=== PATIENT | male | born 1965 | race Caucasian/White ===

== ENCOUNTER 2017-04-21 09:20 | Emergency (ER) | payer BC, OTHER ==
[~2017-04-21] VITALS: Ht 172.7 cm; Wt 115.1 kg
[~2017-04-21 09:20] MED LIST: INFLIXIMAB IV.; PANT40TA PO; PNT500 PO; [UNRECOGNIZED DRUG - OTHER] IV.
[2017-04-21 09:34] VITALS: TEMP 37.1; Ht 172.7 cm; Wt 115.1 kg
[2017-04-21] MEDS ORDERED: ONDANSETRON INJ 2 MG/ML 2 ML VIAL IV STA (09:46)
[2017-04-21] MEDS ORDERED: SODIUM CHLORIDE 0.9% 1000ML 1,000 ML IV STA (09:46)
[2017-04-21] MEDS ORDERED: KETOROLAC TROMETHAMINE 30 MG/ML VIAL IV STA (09:46)
[2017-04-21] MEDS ORDERED: OPTIRAY 320 IV PRN (10:00)
--- NOTE | 2017-04-21 10:07 | EMERGENCY ROOM VISIT NOTE ---
History Report prepared by Kyara: Ran Baires Under the Supervision of: Dr. Kamran Friedman M.D. First contact with patient: 09:43 Chief Complaint: ABDOMINAL PAIN Stated Complaint: BLOATING PAIN IN STOMACH History of Present Illness The patient is a 51 year old male who presents to the Emergency Room with complaints of waxing and waning abdominal discomfort that he has been experiencing for the past 3 days. The patient describes his discomfort as "pressure" and "distention." He notes that the pain seems to be radiating down his abdomen towards his groin and sometimes "rolls" up and down his abdomen. At its most severe, the pain was an 8/10 last night and is currently a 4/10. He is also nauseous at this time and adds that he has not had a normal bowel movement in the past 3 days. The patient does have a history of Crohn's disease with a 24 inch resection of small bowel, and 4 inches of the colon. He did have a colonoscopy 9 days ago, which was routine and basically unremarkable except for a few ulcerations near his anastomosis. Source of History: patient Onset: 3 days Position: abdomen Symptom Intensity: 4/10 Quality: pressure, other (Distention) Timing: waxes/wanes Associated Symptoms: + nausea Note: constipation Review of Systems See HPI for pertinent positives & negatives. A total of 10 systems reviewed and were otherwise negative. Past Medical & Surgical Medical Problems: (1) Crohn disease Surgical Problems: (1) History of bowel resection Crohn disease Family History Cancer Diabetes mellitus FH: heart disease Hypertension Kidney disease Kidney stones Social History Smoking Status: Never Smoker Alcohol Use: none Marital Status: Current/Historical Medications Scheduled Allopurinol (Zyloprim), 300 MG PO DAILY Cholecalciferol (Vitamin D3), 4,000 UNITS PO DAILY Fenofibrate (Tricor ), 145 MG PO DAILY Liraglutide (Victoza), 1.8 ML SC DAILY Mesalamine (Pentasa), 1,000 MG PO BID Metformin Hcl Er (Glucophage Er), 500 MG PO DAILY Pantoprazole (Protonix), 20 MG PO DAILY Pravastatin (Pravachol ), 10 MG PO 2XWK Sennosides-Docusate Sodium (Senokot S), 2 TAB PO BID Allergies Coded Allergies: No Known Allergies (Verified , 10/12/03) Physical Exam Vital Signs Date Time Temp Pulse Resp B/P (MAP) Pulse Ox O2 Delivery O2 Flow Rate FiO2 04/21/17 12:49 73 18 113/79 98 04/21/17 11:15 82 18 123/72 95 Room Air 04/21/17 09:34 37.1 86 17 124/88 94 Room Air Physical Exam GENERAL: Patient is in no acute distress. HEENT: No acute trauma, normocephalic atraumatic, mucous membranes moist, no nasal congestion, no scleral icterus. NECK: No stridor, no adenopathy, no meningismus, trachea is midline. LUNGS: There are a few crackles at the right base, no wheeze, breath sounds equal. HEART: Without murmurs gallops or rubs, regular rate and rhythm. ABDOMEN: Soft, with mild diffuse tenderness, mostly tender in the bilateral lower quadrants. Bowel sounds positive, no hernias, no peritonitis. EXTREMITIES: No cyanosis or edema, full range of motion of all the joints without pain or difficulty, no signs for acute trauma. NEUROLOGIC: Oriented x 3, no acute motor or sensory deficits, no focal weakness. SKIN: No rash, no jaundice, no diaphoresis. Medical Decision & Procedures ER Provider Diagnostic Interpretation: Radiology results as stated below per my review and radiologist interpretation: CHEST ONE VIEW PORTABLE CLINICAL HISTORY: Abdominal bloating. Possible free air. COMPARISON STUDY: Chest radiograph September 12, 2007 and February 01, 2010. FINDINGS: There is no lucency under the hemidiaphragms to indicate free air on this pneumoperitoneum on this exam. There is stable [id number]-rk-opeolqry elevation of the right hemidiaphragm. There is no evidence for pulmonary edema. There is no consolidation. No pneumothorax or pleural effusion is noted. IMPRESSION: No acute cardiopulmonary findings. Electronically signed by: Tony Langford M.D. 04/21/2017 10:08 AM Dictated Date/Time: 04/21/2017 10:07 AM ABD/PELVIS IV AND ORAL CONT CT DOSE: 1643.08 mGy.cm HISTORY: Pain ABDOMINAL PAIN/GI--?abscess, perf--colonoscopy last week, pain TECHNIQUE: Multiaxial CT images of the abdomen and pelvis were performed following the use of intravenous and oral contrast. A dose lowering technique was utilized adhering to the principles of ALARA. COMPARISON STUDY: 01/31/2011 FINDINGS: Lung bases are clear. Liver spleen and pancreas are unremarkable. Fatty replacement of liver is noted. Kidneys enhance uniformly. No evidence for hydronephrosis. The adrenal glands are unremarkable. Considerable increase in fecal load throughout the colon consistent with fecal stasis. Operative changes consistent with an ileocecectomy. Several slightly distended loops of small bowel in the midline possibly secondary to the thecal stasis present versus a reactive ileus. No evidence for free air or pneumatosis. No evidence for abscess collection or obstruction. Bladder is midline. No significant free fluid within the pelvic cul-de-sac. IMPRESSION: 1. Considerable increase in fecal load throughout the colon consistent with fecal stasis. 2. Mild reactive small bowel ileus 3. No evidence for abscess collection or obstruction. 4. Fatty infiltration of liver. The above report was generated using voice recognition software. It may contain grammatical, syntax or spelling errors. Electronically signed by: Alphonso Constantino M.D. 04/21/2017 12:09 PM Dictated Date/Time: 04/21/2017 12:06 PM Laboratory Results 04/21/17 09:38 Red Blood Count 4.92, Mean Corpuscular Volume 88.2, Mean Corpuscular Hemoglobin 29.9, Mean Corpuscular Hemoglobin Concent 33.9, Mean Platelet Volume 10.5, Neutrophils (%) (Auto) 61.1, Lymphocytes (%) (Auto) 26.7, Monocytes (%) (Auto) 9.8, Eosinophils (%) (Auto) 1.8, Basophils (%) (Auto) 0.3, Neutrophils # (Auto) 6.05, Lymphocytes # (Auto) 2.64, Monocytes # (Auto) 0.97, Eosinophils # (Auto) 0.18, Basophils # (Auto) 0.03 04/21/17 09:38 Test 04/21/17 09:38 04/21/17 09:55 White Blood Count 9.90 K/uL (4.8-10.8) Red Blood Count 4.92 M/uL (4.7-6.1) Hemoglobin 14.7 g/dL (14.0-18.0) Hematocrit 43.4 % (42-52) Mean Corpuscular Volume 88.2 fL (80-100) Mean Corpuscular Hemoglobin 29.9 pg (25-34) Mean Corpuscular Hemoglobin Concent 33.9 g/dl (32-36) Platelet Count 302 K/uL (130-400) Mean Platelet Volume 10.5 fL (7.4-10.4) Neutrophils (%) (Auto) 61.1 % Lymphocytes (%) (Auto) 26.7 % Monocytes (%) (Auto) 9.8 % Eosinophils (%) (Auto) 1.8 % Basophils (%) (Auto) 0.3 % Neutrophils # (Auto) 6.05 K/uL (1.4-6.5) Lymphocytes # (Auto) 2.64 K/uL (1.2-3.4) Monocytes # (Auto) 0.97 K/uL (0.11-0.59) Eosinophils # (Auto) 0.18 K/uL (0-0.5) Basophils # (Auto) 0.03 K/uL (0-0.2) RDW Standard Deviation 43.6 fL (36.4-46.3) RDW Coefficient of Variation 13.4 % (11.5-14.5) Immature Granulocyte % (Auto) 0.3 % Immature Granulocyte # (Auto) 0.03 K/uL (0.00-0.02) Anion Gap 7.0 mmol/L (3-11) Est Creatinine Clear Calc Drug Dose 93.3 ml/min Estimated GFR () 85.2 Estimated GFR (Non- 73.5 BUN/Creatinine Ratio 11.4 (10-20) Calcium Level 9.8 mg/dl (8.5-10.1) Total Bilirubin 0.6 mg/dl (0.2-1) Aspartate Amino Transf (AST/SGOT) 21 U/L (15-37) Alanine Aminotransferase (ALT/SGPT) 35 U/L (12-78) Alkaline Phosphatase 58 U/L (45-117) Total Protein 8.3 gm/dl (6.4-8.2) Albumin 4.2 gm/dl (3.4-5.0) Globulin 4.1 gm/dl (2.5-4.0) Albumin/Globulin Ratio 1.0 (0.9-2) Lipase 168 U/L (73-393) Urine Color DK YELLOW Urine Appearance CLEAR (CLEAR) Urine pH 6.5 (4.5-7.5) Urine Specific [place] 1.027 (1.000-1.030) Urine Protein NEG (NEG) Urine Glucose (UA) NEG (NEG) Urine Ketones TRACE (NEG) Urine Occult Blood NEG (NEG) Urine Nitrite NEG (NEG) Urine Bilirubin NEG (NEG) Urine Urobilinogen NEG (NEG) Urine Leukocyte Esterase NEG (NEG) Laboratory results reviewed by me. Medications Administered Medications (Trade) Dose Ordered Sig/Matthew Route Start Time Stop Time Status Last Admin Dose Admin Ondansetron HCl (Zofran Inj) 4 mg NOW STAT IV 04/21/17 09:46 04/21/17 09:49 DC 04/21/17 10:15 4 MG Sodium Chloride 1,000 ml @ 999 mls/hr Q1H1M STAT IV 04/21/17 09:46 04/21/17 10:46 DC 04/21/17 10:15 999 MLS/HR Ketorolac Tromethamine (Toradol Inj) 30 mg NOW STAT IV 04/21/17 09:46 04/21/17 09:49 DC 04/21/17 10:16 30 MG Senna/Docusate Sodium (Senokot S Tab) 2 tab NOW ONCE PO 04/21/17 12:30 04/21/17 12:31 DC 04/21/17 12:41 2 TAB ED Course 0945: The patient was evaluated in room C7. A complete history and physical exam was performed. 0946: Ordered Toradol 30 mg IV, Sodium Chloride 1000 mL @ 999 mL/hr IV, Zofran 4 mg IV. 1214: Reevaluated the patient. Discussed results and discharge instructions: he verbalized understanding and agreement. The patient is ready for discharge. 1230: Ordered Senokot S Tab 2 Tab PO. Medical Decision Differential diagnosis includes; constipation, bowel obstruction, bowel perforation, abscess, UTI, dehydration, electrolyte imbalance, diverticulitis. There is no leukocytosis or concerning anemia. No significant electrolyte abnormality, kidney failure or hepatitis. No evidence for pancreatitis. Urinalysis does not show infection. Abdominal and pelvis CT shows constipation , no abscess, no bowel obstruction, no signs of any infectious process. Chest film does not show pneumonia or free air. Patient received IV saline, he received IV Toradol and IV Zofran. He was eventually given 2 oral Senokot. The patient was reassured by his findings. He is not febrile, he does not seem toxic, there is no peritonitis. He will be discharged on Miralax and Senokot. If worsening, he should return. Medication Reconcilliation Current Medication List: was personally reviewed by me Blood Pressure Screening Patient's blood pressure: Normal blood pressure Impression Primary Impression: Diffuse abdominal pain Additional Impressions: S/P colonoscopy Constipation Scribe Attestation The scribe's documentation has been prepared under my direction and personally reviewed by me in its entirety. I confirm that the note above accurately reflects all work, treatment, procedures, and medical decision making performed by me. Departure Information Dispostion Home / Self-Care Prescriptions Sennosides-Docusate Sodium (SENOKOT S) 1 Tab Tab 2 TAB PO BID, #16 TAB Prov: Kamran Friedman M.D. 04/21/17 Referrals No Doctor, Assigned (PCP) Forms Call Back Authorization, HOME CARE DOCUMENTATION FORM, IMPORTANT VISIT INFORMATION Patient Instructions My [facility] Additional Instructions use miralax 1 heaping capfull in 8 oz of liquid every few hours until start having bowel movements senokot 2 tab 2x per day to help with bowel movements return for worsening symptoms or fever Problem Qualifiers
[2017-04-21] MEDS ORDERED: CHOL1000 PO (10:13)
[2017-04-21] MEDS ORDERED: METF500T5 PO (10:13)
[2017-04-21] MEDS ORDERED: PRT/20 PO (10:13)
[2017-04-21] MEDS ORDERED: PRAV20TA PO (10:13)
[2017-04-21] MEDS ORDERED: PNT500 PO (10:13)
[2017-04-21] MEDS ORDERED: ALLO300T2 PO (10:13)
[2017-04-21] MEDS ORDERED: LIRA18IN SC (10:13)
[2017-04-21] MEDS ORDERED: FENO145T26 PO (10:13)
[2017-04-21 10:23] LABS: BASO % 0.3 %; BASO ABS # 0.03 K/uL (0-0.2); EOS % 1.8 %; EOS ABS # 0.18 K/uL (0-0.5); HEMATOCRIT 43.4 % (42-52); HEMOGLOBIN 14.7 g/dL (14.0-18.0); IG# 0.03 K/uL (0.00-0.02); LYMPH % 26.7 %; LYMPH ABS # 2.64 K/uL (1.2-3.4); MEAN CELL VOLUME 88.2 fL (80-100); MEAN CORPUSCULAR HEMOGLOBIN 29.9 pg (25-34); MEAN CORPUSCULAR HGB CONC 33.9 g/dl (32-36); MEAN PLATELET VOLUME 10.5 fL (7.4-10.4); MONO % 9.8 %; MONO ABS # 0.97 K/uL (0.11-0.59); NEUT % 61.1 %; NEUT ABS # 6.05 K/uL (1.4-6.5); PLATELET COUNT 302 K/uL (130-400); RED CELL DISTRIBUTION WIDTH CV 13.4 % (11.5-14.5); RED CELL DISTRIBUTION WIDTH SD 43.6 fL (36.4-46.3)
[2017-04-21 10:40] LABS: CREATININE 1.14 mg/dl (0.60-1.40)
[2017-04-21 10:41] LABS: ALBUMIN 4.2 gm/dl (3.4-5.0); CALCIUM 9.8 mg/dl (8.5-10.1)
[2017-04-21 10:43] LABS: TOTAL PROTEIN 8.3 gm/dl (6.4-8.2)
--- NOTE | 2017-04-21 12:10 | DIAGNOSTIC IMAGING REPORT ---
ABD/PELVIS IV AND ORAL CONT CT DOSE: 1643.08 mGy.cm HISTORY: Pain ABDOMINAL PAIN/GI--?abscess, perf--colonoscopy last week, pain TECHNIQUE: Multiaxial CT images of the abdomen and pelvis were performed following the use of intravenous and oral contrast. A dose lowering technique was utilized adhering to the principles of ALARA. COMPARISON STUDY: 01/31/2011 FINDINGS: Lung bases are clear. Liver spleen and pancreas are unremarkable. Fatty replacement of liver is noted. Kidneys enhance uniformly. No evidence for hydronephrosis. The adrenal glands are unremarkable. Considerable increase in fecal load throughout the colon consistent with fecal stasis. Operative changes consistent with an ileocecectomy. Several slightly distended loops of small bowel in the midline possibly secondary to the thecal stasis present versus a reactive ileus. No evidence for free air or pneumatosis. No evidence for abscess collection or obstruction. Bladder is midline. No significant free fluid within the pelvic cul-de-sac. IMPRESSION: 1. Considerable increase in fecal load throughout the colon consistent with fecal stasis. 2. Mild reactive small bowel ileus 3. No evidence for abscess collection or obstruction. 4. Fatty infiltration of liver. The above report was generated using voice recognition software. It may contain grammatical, syntax or spelling errors. Electronically signed by: Alphonso Constantino M.D. 04/21/2017 12:09 PM Dictated Date/Time: 04/21/2017 12:06 PM
[2017-04-21] MEDS ORDERED: DOCUSATE SODIUM/SENNA 50/8.6MG TAB PO ONE (12:30)
[2017-04-21] MEDS ORDERED: SENN-65 PO (12:32)
[2017-04-21 12:49] VITALS: BP 113/79; PULSE 73; O2SAT 98
== END 2017-04-21 12:50 | disposition home or self-care (01) ==
LOC: C.EDB 09:21 → C.EDC 12:50
DX: R14.0 Abdominal distension (gaseous) (principal); K59.00 Constipation, unspecified; Z98.890 Other specified postprocedural states; Z87.19 Personal history of other diseases of the digestive system

== ENCOUNTER 2024-01-11 09:53 | Inpatient (IN) ==
[2024-01-11] MEDS: ACETAMINOPHEN 500 MG TAB PO STA (10:38)
[2024-01-11] MEDS: dexAMETHasone**PF** 10 MG/ML VIAL IM ONE (12:01)
--- NOTE | 2024-01-11 14:42 | Magnetic Resonance Report ---
MRI OF THE THORACIC SPINE WITHOUT CONTRAST CLINICAL HISTORY: Falls. Back pain. Numbness. Bilateral lower extremity weakness. COMPARISON: None. TECHNIQUE: Utilizing a 1.5 Nicole magnet and dedicated coil, multiplanar, multiecho imaging of the th oracic spine was performed without IV contrast. FINDINGS: Alignment of the thoracic spine is anatomic. Vertebral body heights are maintained. No barbie ow edema or marrow replacement is present. There are no thoracic spine fractures. No intracanalicular mass or fluid collection is present. Moderate multilevel degenerative changes within the thoracic sp ine are present, including disc space narrowing and ossified ptosis with facet arthrosis. There is se debby central canal stenosis at T4-T5 due to disc bulge with severe facet arthrosis in extensive ligam entous hypertrophy. Patent AP diameter of the canal is 2.9 mm. Associated increased T2 signal within the cord suggests cord edema. Otherwise, there is mild multilevel central canal stenosis probably due to facet arthrosis with ligamentous hypertrophy. Thoracic cord signal is otherwise normal. There is no intracanalicular mass or fluid collection. Paravertebral soft tissues are unremarkable. There is m oderate multilevel neural foraminal stenosis. IMPRESSION: 1. Severe central canal stenosis at T4-T5 due to disc bulge, facet arthrosis and extensive ligamentou s hypertrophy. This results in cord impingement with cord edema. 2. Otherwise, mild multilevel central canal stenosis. 3. Moderate multilevel neural foraminal stenosis. 4. No acute thoracic spine fractures. ACT 112: Negative or not required by law. Electronically signed by: Tony Langford M.D. 01/11/2024 2:40 PM
--- NOTE | 2024-01-11 14:49 | Magnetic Resonance Report ---
MRI OF THE LUMBAR SPINE WITHOUT CONTRAST CLINICAL HISTORY: back pain, numbness COMPARISON STUDY: Lumbar spine radiographs October 26, 2011. TECHNIQUE: Utilizing a 1.5 Nicole magnet and dedicated coil, multiplanar, [facility]iecho [facility] was performed without IV contrast. FINDINGS: For purposes of numbering on this exam, the L5-S1 disc space is assigned to axial image 27 of 30. Jeanne tebral body heights are maintained. No lumbar spine fractures are identified. There is moderate marro w edema along the left aspect of the superior endplate of T12. Vertebral body heights are maintained. This is likely discogenic in etiology. There may be mild paravertebral edema. There is no intracanal icular mass or fluid collection. Conus terminates at the upper L1 level. Paravertebral soft tissues a re unremarkable. Moderate multilevel degenerative changes within the lumbar spine are present. A 1.5 cm T1 and T2 hypointense focus within the left iliac bone is partially imaged. L1-2: The central canal is patent. There is moderate facet arthrosis. The neural foramen are patent. L2-3: There is moderate facet arthrosis with ligamentous hypertrophy. Central canal is patent. There is moderate bilateral neural foraminal stenosis. L3-4: Mild disc bulge is present. There is moderate facet arthrosis with ligamentous hypertrophy. Kamran tral canal is patent. There is moderate bilateral neural foraminal stenosis. L4-5: There is moderate facet arthrosis with ligamentous hypertrophy. There is disc bulge with superi mposed small right paracentral disc protrusion. There is moderate narrowing of the right lateral rece ss and left neural foraminal severe right neural foraminal stenosis. L5-S1: Facet arthrosis is present. Central canal and neural foramen are patent. IMPRESSION: 1. No lumbar spine fractures. 2. No acute process within the lumbar spine by MRI. 3. Moderate multilevel facet arthrosis and mild to moderate multilevel degenerative disc disease. No central canal stenosis. Moderate to severe multilevel neural foraminal stenosis, as described above. ACT 112: Negative or not required by law. Electronically signed by: Tony Langford M.D. 01/11/2024 2:47 PM
--- NOTE | 2024-01-11 16:05 | CT Scan Report ---
CT OF THE THORACIC SPINE CLINICAL HISTORY: spinal stenosis COMPARISON STUDY: Thoracic spine MRI performed earlier today. TECHNIQUE: Helical axial images of the thoracic spine were obtained. Sagittal and coronal reconstru ctions were viewed. Automated exposure control was utilized for the study. A dose lowering techniqu e was utilized adhering to the principles of ALARA. FINDINGS: Alignment of the thoracic spine is anatomic. Vertebral body heights are maintained with the exception of slight loss of height of the superior endplate of T9 which is likely chronic. No acute thoracic spine fractures are present. There are no osseous lesions within the thoracic spine. There i s moderate anterior osteophytosis of the thoracic spine. Multiple disc osteophyte complexes are prese nt, including a disc ossify complexes at the T4-T5 level. This is largely composed of bone. In additi on, there is moderate to severe multilevel facet arthrosis. There is associated ossific/calcific mate rial within the posterior aspect of the canal. These findings account for severe central canal stenos is which were shown on MRI of January 11, 2024. These findings are most pronounced at the T4-T5 leve l. IMPRESSION: 1. No acute thoracic spine fracture or subluxation. 2. Moderate multilevel degenerative disc disease and moderate to severe facet arthrosis within the th oracic spine. Posterior osteophyte formation at several levels, most pronounced at the T4-T5 level. F acet arthrosis with ligamentous hypertrophy which is partially calcified/ossified. Therefore, severe central canal stenosis at T4-T5 on MRI performed earlier today is largely due to osteophyte/bone form ation. ACT 112: Negative or not required by law. Electronically signed by: Tony Langford M.D. 01/11/2024 4:04 PM
[2024-01-11] MEDS ORDERED: ONDANSETRON INJ 2 MG/ML 2 ML VIAL IV PRN (17:15)
[2024-01-11] MEDS ORDERED: ACETAMINOPHEN 1,000 MG/100 ML VIAL IV PRN (17:15)
[2024-01-11] MEDS ORDERED: PROMETHAZINE 12.5 MG/50.5 ML BAG IV PRN (17:15)
[2024-01-11] MEDS ORDERED: METOCLOPRAMIDE HCL INJ 5 MG/ML 2 ML VIAL IV PRN (17:15)
[2024-01-11] MEDS ORDERED: ONDANSETRON 4 MG OD TAB PO PRN (17:15)
[2024-01-11] MEDS ORDERED: LORazepam 0.5 MG TAB PO PRN (17:15)
[2024-01-11] MEDS ORDERED: PHARMACY GLYCEMIC MGMT CONSULT PRN (17:15)
[2024-01-11] MEDS ORDERED: NALOXONE HCL 0.4 MG/1 ML VIAL/CARP IV PRN (17:15)
[2024-01-11] MEDS ORDERED: ALUMINUM/MAGNESIUM SUSP 30 ML UDC PO PRN (17:15)
[2024-01-11] MEDS ORDERED: LORazepam 2 MG/1 ML VIAL IV PRN (17:15)
[2024-01-11] MEDS ORDERED: MAGNESIUM HYDROXIDE SUSP 30 ML UDC PO PRN (17:15)
[2024-01-11 18:05] LABS: Basophils # (auto) 0.03 K/uL (0.00-0.20); Basophils % (auto) 0.3 %; Eosinophils # (auto) 0.01 K/uL (0.00-0.50); Eosinophils % (auto) 0.1 %; Hematocrit (blood only) 40.8 % (42.0-52.0); Hemoglobin 13.7 g/dl (14.0-18.0); Immature Granulocytes # (auto) 0.06 K/uL (0.01-0.20); Immature Granulocytes % (auto) 0.5 %; Lymphocytes # (auto) 1.54 K/uL (1.20-3.40); Mean Corpuscular Hemoglobin 30.2 pg (25.0-34.0); Mean Corpuscular Hgb Conc 33.6 g/dL (32.0-36.0); Mean Corpuscular Volume 89.9 fL (80.0-100.0); Mean Platelet Volume 10.1 fL (9.4-12.4); Monocytes # (auto) 0.09 K/uL (0.11-0.59); Monocytes % (auto) 0.8 %; Neutrophils # (auto) 10.12 K/uL (1.40-6.50); Neutrophils % (auto) 85.3 %; Platelet Count 288 K/uL (130-400); RDW Coefficient of Variation 13.1 % (11.5-14.5); RDW Standard Deviation 42.9 fL (36.4-46.3); Red Blood Count 4.54 M/uL (4.70-6.10); White Blood Count 11.85 K/ul (4.8-10.8)
[2024-01-11 18:21] LABS: Albumin Globulin Ratio 1.4 (0.9-2); Albumin Level 4.6 gm/dl (3.4-5.0); Bilirubin,Total 0.5 mg/dl (0.2-1.0); Calcium 10.5 mg/dl (8.6-10.3); Globulin 3.3 gm/dl (2.5-4.0); Potassium 4.4 mmol/L (3.5-5.1); Total Protein 7.9 gm/dl (6.0-8.3)
--- NOTE | 2024-01-11 18:43 | XRay Report ---
HISTORY: Preoperative evaluation. TECHNIQUE: PA and lateral chest radiographs. COMPARISON: Chest radiograph dated 02/25/2023 FINDINGS: No focal lung consolidation. No pneumothorax or pleural effusion. The normal heart size. Left-sided aortic arch. Midline trachea. Included upper abdomen is unremarkable. No acute osseous abnormality. IMPRESSION: No acute cardiopulmonary findings. Electronically signed by Jose Felix 01-11-2024 6:43 PM
[2024-01-11] MEDS: dexAMETHasone 8 MG in SYRINGE 0 ML IV SCH (18:44)
[2024-01-11] MEDS: INSULIN ASPART PER UNIT CHARGE SC SCH (18:49)
--- NOTE | 2024-01-11 19:13 | Hospitalist Consultation ---
Date of Consultation January 11, 2024 Assessment & Plan (1) Thoracic spinal stenosis: Back pain, left lower extremity weakness - LEFT Lower Extremity weakness, right numbness Patient is with critical strength loss likely due to severe stenosis at T4-T5 [facility] consulted. Tentatively booked for the OR 01/11 Will continue dexamethasone 8 mg daily Discussed with orthospine. Patient is at increased risk of VTE due to his history of Crohn's and also has a history of splenic infarct. Will give 1 dose of subcu heparin for DVT prophylaxis tonight, and then resume subcu heparin 24 hours after any surgical intervention and ultimately transition to Lovenox after 72 hours for DVT prophylaxis if doing well and stable Takes aspirin for primary prevention, took 2 doses evening of 01/09 for pain/discomfort RCRI class I risk due to insulin use, 6% 30-day risk of major cardiac event. No optimized will risk factors identified at time of admission. Although recently limited due to his spiral fracture had been able to complete at least 4 METS without limiting angina, dyspnea. Creatinine is at baseline, 0.81-day of admission. No history of ischemic disease, no CHF on admission, no history of TIA. Recommend proceeding to surgery as a RCRI 1 point/class II risk. (2) Crohn disease: Crohn's disease On Entyvio every 8 weeks. Due jan 29 No acute flare On dexamethasone as noted DVT prophylaxis as noted (3) Diabetes mellitus: Type 2 diabetes mellitus Ozempic held while inpatient (has not been taking in the last 6 weeks). Metformin held while inpatient Baseline insulin glargine 30 units every morning continued Continue basal calculated bolus dosing CF 15/carb ratio 5 Goal BSG [id number] Pharmacy glycemic consult in place -Takes baby aspirin daily for primary prevention, did not take this 01/11/2024 (4) Neurogenic claudication: Plan DVT prophylaxis: Heparin x 1 given 01/10, hold pharmacal prophylaxis perioperatively and resume after 24 hours. Anticipate heparin subcu x 3 days and then if stable transitioning to Lovenox CODE STATUS: Full code Diet: N.p.o. at midnight pending surgical evaluation Disposition: MSO History of Present Illness Attending Physician: Jean Waggoner, DO History of Present Illness Vickey is a 58-year-old male with a past medical history of Crohn's, HLD, T2DM w/ fatty liver disease who presents for left extremity weakness and for operative management of critical thoracic spinal stenosis. Jack is seen at the bedside with his present. He reports that everything began around November 28 when he had a fall and a right leg spiral fracture for which she was seen by [facility] and underwent operative repair with a plate and 6 screws. He was given a boot nonweightbearing for a week and then slowly progressed from there. He did have some back pain over 4 weeks which she attributed to on even leg length while wearing the boot however his boot came off last week and he felt his back pain actually got worse. In addition he has noticed progressive weakness in his left leg which was normally his "good leg ". No incontinence/saddle anesthesia. Does have some numbness and qualitative sensory change in his right distal leg. No sensory loss of the left leg. He was seen by his PCP and was put methylprednisolone however saw PT who noted severe weakness and referred him for further evaluation of his back discomfort and weakness. Patient presented to the ER and underwent an MRI after having a discussion with spine surgery who is already scheduled for an office appointment due to his back pain and was found to have cord enhancement with significant disc bulge T4-T5 to a disc bulge. He was recommended for inpatient surgical management. Denies chest pain or chest pressure. Prior to injuring his leg could walk around the block and do normal activities and go up stairs without limiting chest pain, dyspnea, or anginal symptoms. No history of renal disease. Reports well-controlled diabetes on insulin. Reports that he did have a splenic clot while on Remicade otherwise denies medication allergies or adverse events. Medical History: Reviewed Medications: Reviewed Surgical History: Reviewed Family history: Reviewed Allergies: Reviewed. ?AE from Remicade. Social History: Former rare cigar use. No regular ETOH use. Code Status: Full Allergies Allergy/AdvReac Type Severity Reaction Status Date / Time infliximab [From Remicade] AdvReac Severe per pt Unverified 01/11/24 14:57 they think it caused a blood clot Home Medications Medication Instructions Recorded Confirmed Type ALLOPURINOL (ZYLOPRIM) 300 mg PO DAILY ##0 04/21/17 01/11/24 History CHOLECALCIFEROL (VITAMIN D3) 4,000 unit PO DAILY ##0 04/21/17 01/11/24 History Fenofibrate (Tricor ) 145 mg PO DAILY ##0 04/21/17 01/11/24 History METFORMIN HCL ER (GLUCOPHAGE ER) 500 mg PO DAILY ##0 04/21/17 01/11/24 History Mesalamine (Pentasa) 1,000 mg PO BID ##0 04/21/17 01/11/24 History Pantoprazole (Protonix) 20 mg PO DAILY ##0 04/21/17 01/11/24 History Entyvio 1 dose IV .[id number] 01/11/24 01/11/24 History atorvastatin 40 mg tablet 40 mg PO DAILY 01/11/24 01/11/24 History icosapent ethyl 1 gram capsule 2 g PO BID 01/11/24 01/11/24 History insulin glargine U-300 conc 300 30 unit subcut QAM 01/11/24 01/11/24 History unit/mL (3 mL) subcutaneous pen (Toujeo Max U-300 SoloStar) methylprednisolone 4 mg tablets in 4 mg PO DIRECTED 01/11/24 01/11/24 History a dose pack semaglutide 2 mg/dose (8 mg/3 mL) 2 mg subcut UD 01/11/24 01/11/24 History subcutaneous pen injector (Ozempic) Patient History Social History Smoking Status: Never smoker Hx Alcohol Use: No Hx Substance Use: No Preferred Language: Indonesian Audit Reviewer Required: No Beliefs That Will Affect Care: None Current Living Situation: Spouse Other Information That Helps Us Care for You: No Feels Safe at Home: Yes Safety Concerns: Feels Safe At This Time Physical Exam Physical Exam: General: A&Ox3. NAD. Cooperative. HEENT: Atraumatic, normocephalic. Vision/hearing grossly intact. EoM intact. Pulm: CTAB A&P. -wheezes, -rales, -rhonchi. Symmetrical chest rise. No increased work of breathing. No respiratory distress. Cardiac: RRR, -mrg. Radial pulses intact and symmetrical. Abdominal: Nontender, nondistended, soft. BS present. CRANIAL NERVES: MOTOR: RUE: 5/5 Shoulder internal rotation, external rotation, flexion, extension, abduction, adduction 5/5 Elbow flexion/extension, wrist flexi on/extension 5/5 turkey pinner strength, finger flexion/extens ion, interosseus LUE: 5/5 Shoulder internal rotation, external rotation, flexion, extension, abduction, adduction 5/5 Elbow flexion/extension, wrist flexi on/extension 5/5 turkey pinner strength, finger flexion/extens ion, interosseus RLE: 5/5 to hip flexion/extension, knee flexi on/extension, ankle dorsiflexion/plantarflexion LLE: 3/5 to hip flexion, knee flexion/extensi on, ankle dorsiflexion/plantarflexion. No clonus bilat SENSORY: Normal to touch in upper and lower extremities without deficit, although qualitatively diminished on RIGHT plantar/dorsal foot and ankle compared to left. Results & Data Results & Data Vital Signs (Past 12 Hours) Vital Signs Temp Pulse Pulse Resp BP BP Pulse Ox 01/11/24 16:50 36.8 C 89 18 147/93 H 95 01/11/24 16:18 88 17 139/91 95 01/11/24 12:14 89 16 139/91 98 01/11/24 09:57 37.0 C 93 H 16 155/97 H 95 O2 Del Method 01/11/24 16:50 Room Air 01/11/24 16:18 Room Air 01/11/24 12:14 Room Air 01/11/24 09:57 PG Care Time/CCT Total # of Minutes Spent Total Time Spent with Patient: Total time spent is greater than 50% in coordination of care (as documented) at patient's floor/unit and/or counseling patient: Coding Level of Care Code 17476 IN/OBS CONSULT LVL 4,60M Diagnoses Thoracic spinal stenosis M48.04 Crohn disease K50.90 Diabetes mellitus E11.9 Neurogenic claudication R29.818
[2024-01-11] MEDS: HEPARIN SOD 5,000 UNIT/0.5 ML VIAL SQ STA (22:17)
[2024-01-11] MEDS: ACETAMINOPHEN 500 MG TAB PO PRN (22:18)
[2024-01-12] MEDS ORDERED: Nursing to Pharmacy Communication SCH ×2 (01:30→16:15)
--- OUTSIDE RECORDS SUMMARY | 2024-01-12 06:15 | External Medical Summary | Continuity of Care Document ---
Author Name Unknown Organization [facility] [address] [facility] [address] [place] [id number] Care Team Providers Care Barrel Brander Name Role Phone SandovalRosy gleason Pepper Primary Care Physician [phone] Encounter [facility] [id number] Date(s): 11/11/23 - 11/11/23 [facility] [address] [facility] [address] [facility] [address] [facility] [address] [place] [address] [phone] Encounter Diagnosis Eustachian tube dysfunction(Discharge Diagnosis) - 11/11/23 Discharge Disposition: Home or Self Care Attending Physician: DO Flores Stephanie Marie Allergies, Adverse Reactions, Alerts Substance Criticality Severity Reaction Reaction Severity Status Remicade splenic clot Active Immunizations Given and Recorded Vaccine Date Status Refusal Reason meningococcal group B vaccine 07/21/21 Given meningococcal group B vaccine 06/05/21 Given pneumococcal 13-valent vaccine 06/05/21 Given zoster vaccine, inactivated 05/21/21 Given zoster vaccine, inactivated 01/15/20 Given meningococcal conjugate vaccine 05/21/21 Given meningococcal conjugate vaccine 02/04/11 Given SARS-CoV-2 (COVID-19) mRNA-1273 vaccine 04/22/20 R ecorded SARS-CoV-2 (COVID-19) mRNA-1273 vaccine 03/18/20 R ecorded pneumococcal 23-valent vaccine 01/15/20 Given pneumococcal 23-valent vaccine 02/04/11 Given tetanus toxoids-diphtheria, Td (Adult) 11/07/18 Gi tammy influenza virus vaccine, inactivated 12/06/17 Give n influenza virus vaccine, inactivated 01/12/17 Give n influenza virus vaccine, inactivated 01/23/15 Give n haemophilus b conjugate (PRP-T) vaccine 02/04/11 G iven tetanus/diphtheria/pertuss, acel (Tdap) 07/25/07 R ecorded Medications Accu-Chek Active Glucose Monitor Start: 12/04/18 5:03:00 PM EDT, See Instructions, Disp# 1 packet, check bsg qid, Pharmacy: [facility] Start Date: 12/04/18 Status: Ordered Accu-Chek Multiclix (30G) Lancets 100 ct Start: 12/04/18 5:04:00 PM EDT, See Instructions, Disp# 100 each, check bsg qid, Pharmacy: [facility] Start Date: 12/04/18 Status: Ordered Accu-Chek SmartView Test Strips 100 ct Start: 05/25/19 10:44:00 AM EDT, See Instructions, Disp# 400 each, Refills: 3, check bsg qid, Pharmacy: [facility] Start Date: 05/25/19 Status: Ordered allopurinol 300 mg oral tablet Start: 12/30/22 11:39:00 AM EST, 1 tab, PO, Daily, Disp# 90 tab, Refills: 3, Pharmacy: [facility] Start Date: 12/30/22 Status: Ordered aspirin 81 mg oral delayed release tablet Start: 10/02/13 9:50:00 AM EDT, 1 tab, PO, Daily Start Date: 10/02/13 Status: Ordered atorvastatin 40 mg oral tablet Start: 06/18/20 1:54:00 PM EDT, 1 tab, PO, Daily Start Date: 06/18/20 Status: Ordered Augmentin 875 mg-125 mg oral tablet Start: 04/22/23 11:50:00 AM EST, amoxicillin 1 tab, PO, q12h, Disp# 20, with food or milk, Pharmacy: [facility] #[id number] Start Date: 04/22/23 Stop Date: 05/02/23 Status: Ordered BD needle Ultra-Fine III Short Pen 31G x 8 mm Start: 01/15/20 9:26:00 AM EST, See Instructions, Disp# 300 each, Refills: 3, Use to inject insulintwice daily, Note to Pharmacy: ICD-10: E11.9, Pharmacy: [facility] Start Date: 01/15/20 Status: Ordered cetirizine 10 mg oral tablet Start: 02/25/23 8:09:00 AM EST, 1 tab, PO, Daily, Disp# 30 tab, Refills: 1, PRN: as needed for allergy symptoms, Pharmacy: [id number] Start Date: 02/25/23 Stop Date: 04/26/23 Status: Ordered Entyvio 300 mg intravenous injection Start: 08/14/20 4:17:00 PM EDT, 300 mg =, IV, [id number] Start Date: 08/14/20 Status: Ordered fenofibrate 145 mg oral tablet Start: 11/06/21 5:15:00 PM EDT, See Instructions, Disp# 90 tab, Refills: 3, TAKE 1 TABLET BY MOUTH ONCE DAILY, Pharmacy: [facility] Start Date: 11/06/21 Status: Ordered Flonase 50 mcg/inh nasal spray Start: 07/27/16 11:25:00 AM EDT, 2 spray, each nostril, Daily, Disp# 1 each, Refills: 0, Pharmacy: [id number] Start Date: 07/27/16 Status: Ordered MetFORMIN (Eqv-Glucophage XR) 500 mg oral tablet, extended release Start: 12/30/22 11:40:00 AM EST, 2 tab, PO, bid, Disp# 360 tab, Refills: 3, Pharmacy: [email or web address] Start Date: 12/30/22 Status: Ordered Ozempic (1 mg dose) Start: 07/14/20 8:13:00 AM EDT, See Instructions, Note to Pharmacy: 0.5 mg sq weekly on tuesday Start Date: 07/14/20 Status: Ordered pantoprazole 40 mg oral delayed release tablet Start: 04/27/22 9:57:00 AM EST, 1 tab, PO, Daily, Disp# 90 tab, Refills: 1, Pharmacy: [email or web address] Start Date: 04/27/22 Stop Date: 10/24/22 Status: Ordered Pentasa 500 mg oral capsule, extended release Start: 08/19/21 8:27:00 AM EDT, 2 cap, PO, bid, Disp# 360 cap, Refills: 3, (do not crush or chew), Pharmacy: [facility] Start Date: 08/19/21 Status: Ordered Toujeo Max SoloStar 300 units/mL subcutaneous solution Start: 07/14/20 8:12:00 AM EDT, 60 unit =, subQ, Daily, Note to Pharmacy: in AM Start Date: 07/14/20 Status: Ordered Vascepa 1 g oral capsule Start: 09/08/21 4:31:00 PM EDT, 2 cap, PO, bid Start Date: 09/08/21 Status: Ordered Vitamin B12 500 mcg oral tablet Start: 08/14/20 4:16:00 PM EDT, 1 tab, PO, Daily Start Date: 08/14/20 Status: Ordered Vitamin D3 5000 intl units oral tablet Start: 12/07/18 9:08:00 AM EDT, 1 tab, PO Start Date: 12/07/18 Status: Ordered Mental Status 11/11/23 Barriers to Learning one year None evide nt Mandatory Health Literacy Documentation Yes Health Literacy Communication Barriers N ever Primary Language [place] Problem List Condition Confirmation Course Effective Dates Status H ealth Status Informant Anal fistula Confirmed Active Fistula Confirmed Active GERD (gastroesophageal reflux disease) Confirmed Active Gout Confirmed Active Hyperuricemia 1 Confirmed Active Increased body mass index Confirmed Active Hyperlipidemia Confirmed 08/19/11 Active Fatty liver Confirmed Active Thrombus 2 Confirmed Active Tobacco user Confirmed Active Type 2 diabetes mellitus Confirmed Active Weight disorder Confirmed Active 19.7, on 02-19-2011 2arterial Diagnosis Diagnosis Type Effective Dates Health Status Clinical Service Informant Eustachian tube dysfunction Discharge Diagnosis 11/11/23 Non-Specified Procedures Procedure Date Related Diagnosis Body Site Status Colonoscopy 1 04/08/[address] of abdomen and pelvis 2 09/04/21 Completed Laboratory findings data int erpretation 3 05/18/21 Completed Perianal fistula - CTON procedure 04/2021 Completed Laboratory findings data int erpretation 4 11/24/20 Completed Ultrasound scan of lower abdomen 5 10/14/20 Completed Laboratory findings data int erpretation 6 09/29/20 Completed Laboratory findings data int erpretation 7 08/15/20 Completed Plain X-ray of all toes of left foot 8 08/27/19 Completed Chest X-ray 9 04/21/[address] of abdomen and pelvis 10 04/21/17 Completed Colonoscopy 11 04/12/17 Completed Examining eye 12 06/19/15 Complete d Ileocolectomy Completed surgery for perirectal fistu la and abscess Completed 1Impression: -seton found on perianal exam -the examined portion of the ileum was normal. Biopsied -patent end to side ileo-colonic anastomosis, characterized by congestion and erosion. biopsed -normal mucosa in the entire examined colon -diverticulosis in the sigmoid colon -non bleeding internal hemorrhoids 2[facility] Impression: 1. Moderate enlarged prostate, volume 63 ml 2. No additional urinary tract finding 3. At the sigmoid shows mild to moderate diffuse wall thickening, which could be related which could be related to history of Crohn's disease 3CBC nl, BUN nl, Cr nl, AST nl, ALT normal 4CBC, BUN, CR AST, ALT normal. 5[facility] Impressin; 1. No sonographic abnormality within the right lower quadrant 6CBC nl, BUN nl, CR nl, AST cancelled, ALT 40 nl. 7CBC Hgb 13.8 L, BUN nl, CR nl, AST nl, ALT normal. 8impression Acute nondisplaced linear longitudinal intra-articular fracture of the lateral base first distal phalanx 9No acute cardiopulmonary findings. 101. Considerable increase in fecal load throughout the colon consistent with fecal stasis. 2. Mild reactive small bowel ileus. 3. No evidence for abscess collection or obstruction. 4. Fatty infiltration of liver. 11Patent end-to-side ileo-colonic anastomosis, charachterized by erosion. 12no diabetic retinopathy no treatment necessary f/u in 1 yr Vital Signs Most recent to oldest [Reference Range]: 1 Patient Weight 105.7 kg (11/11/23 8:39 AM) Heart Rate 64 bpm (11/11/23 8:39 AM) Blood Pressure 122/84mmHg (11/11/23 8:39 AM) Cuff Pulse Pressure 38 mmHg (11/11/23 8:39 AM) Social History Social History Type Response Tobacco Current some day smo ker, Cigars Smoking Status Never smoked cigaret christian Sex Sex Representation Male (finding) Patient Care team information Care Team Personnel Name: MD Limon Jonathan D Position: Physician - Family Med Member Role: Lifetime Relationship Address: [address] [address] [place] Name: LONG Pfeiffer Jessica A Position: Physician Asst Exmpt - Family Med Member Role: Primary Care Provider Address: [address] [place] [id number] [place] Care Team Related Persons Name: OSVALDO NGUYEN Name: OSVALDO NGUYEN
[2024-01-12] MEDS: INSULIN ASPART PER UNIT CHARGE SC SCH ×2 (06:31→17:48)
--- NOTE | 2024-01-12 08:15 | History & Physical Report ---
Date of Service January 12, 2024 Assessment & Plan (1) Myelopathy concurrent with and due to spinal stenosis of thoracic region: Plan: Assessment T4-T5 severe spinal stenosis with myelomalacia on imaging and myelopathic presentation. Plan at this time we are recommending emergent decompression fusion T4-T5. The primary goal of surgery is to halt the progression of cord damage and disease and hopefully in time patient will regain some recovery of neurologic function. Risk benefits pros cons alternatives all in detail. Risk include but not limited to anesthesia blindness to process nerve damage blood loss requiring transfusion infection requiring reoperation bends over to be stabilization of the thoracic spine and improvement of his neurologic function. Plan for surgery as soon as possible. Admission and Anticipated Discharge Date Admission Date: January 11, 2024 History of Present Illness Chief Complaint: Leg numbness weakness with difficulty ambulating Primary Care Provider: Rosy Pfeiffer PA-C This is a 58-year-old male who presents to our clinic yesterday. He has a marked decline in status over the past week with inability to ambulate without loss of balance. He notes progressive weakness to the lower extremities. As he presented grossly myelopathic he was sent to the emergency room for emergent imaging. Allergies Allergy/AdvReac Type Severity Reaction Status Date / Time infliximab [From Remicade] AdvReac Severe per pt Unverified 01/11/24 14:57 they think it caused a blood clot Home Medications Medication Instructions Recorded Confirmed Type ALLOPURINOL (ZYLOPRIM) 300 mg PO DAILY ##0 04/21/17 01/11/24 History CHOLECALCIFEROL (VITAMIN D3) 4,000 unit PO DAILY ##0 04/21/17 01/11/24 History Fenofibrate (Tricor ) 145 mg PO DAILY ##0 04/21/17 01/11/24 History METFORMIN HCL ER (GLUCOPHAGE ER) 500 mg PO DAILY ##0 04/21/17 01/11/24 History Mesalamine (Pentasa) 1,000 mg PO BID ##0 04/21/17 01/11/24 History Pantoprazole (Protonix) 20 mg PO DAILY ##0 04/21/17 01/11/24 History Entyvio 1 dose IV .[id number] 01/11/24 01/11/24 History atorvastatin 40 mg tablet 40 mg PO DAILY 01/11/24 01/11/24 History icosapent ethyl 1 gram capsule 2 g PO BID 01/11/24 01/11/24 History insulin glargine U-300 conc 300 30 unit subcut QAM 01/11/24 01/11/24 History unit/mL (3 mL) subcutaneous pen (Toujeo Max U-300 SoloStar) methylprednisolone 4 mg tablets in 4 mg PO DIRECTED 01/11/24 01/11/24 History a dose pack semaglutide 2 mg/dose (8 mg/3 mL) 2 mg subcut UD 01/11/24 01/11/24 History subcutaneous pen injector (Ozempic) Past Med/Surg History Problem List (Updated 01/12/24 @ 08:14 by Jean Waggoner DO) Myelopathy concurrent with and due to spinal stenosis of thoracic region Neurogenic claudication Diabetes mellitus Thoracic spinal stenosis Crohn disease (Chronic) Social History Smoking Status: Never smoker Hx Alcohol Use: No Hx Substance Use: No Preferred Language: Croatian Talent Acquisition Partner Required: No Beliefs That Will Affect Care: None Current Living Situation: Spouse Other Information That Helps Us Care for You: No Feels Safe at Home: Yes Safety Concerns: Feels Safe At This Time Physical Exam Physical Exam: On exam he does have a grossly myelopathic gait widened and unsteady. He has clonus to the left ankle as well as brisk reflexes to the left patellar. There is strength deficits to detailed testing. Sensory to cold is intact to light touch is limited. Results & Data Results & Data Vital Signs (Past 12 Hours) Vital Signs Temp Pulse Resp BP Pulse Ox O2 Del Method 01/12/24 07:15 36.6 C 99 H 18 128/78 93 Room Air Code Status & VTE Plan VTE Prophylaxis Plan VTE Prophylaxis will be ordered: Yes
[2024-01-12 08:54] LABS: Estimated Average Glucose 120 mg/dl; Hemoglobin A1C 5.8 % (4.5-5.6)
[2024-01-12] MEDS: LANTUS PER UNIT CHARGE SC SCH ×2 (10:01→17:49)
[2024-01-12] MEDS ORDERED: LIDOCAINE 2% 2 ML VIAL/AMP(20MG/ML) INFIL ONE ×2 (11:04→12:15)
[2024-01-12] MEDS ORDERED: PROPOFOL IV EMULSION 10 MG/ML 20 ML VIAL IV ONE ×2 (11:04→11:08)
[2024-01-12] MEDS ORDERED: ROCURONIUM BROMIDE 10 MG/ML 5 ML VIAL IV ONE ×2 (11:04→12:18)
[2024-01-12] MEDS ORDERED: MIDAZOLAM HCL 1 MG/ML 2ML VIAL ONE (11:05)
[2024-01-12] MEDS ORDERED: fentaNYL citrate PF 100 MCG/2 ML VIAL ONE ×2 (11:05→12:21)
[2024-01-12] MEDS ORDERED: ONDANSETRON INJ 2 MG/ML 2 ML VIAL ONE (11:07)
[2024-01-12] MEDS ORDERED: DEXAMETHASONE SOD INJ 4 MG/ML VIAL ONE (11:07)
--- NOTE | 2024-01-12 11:07 | Emergency Department Note ---
ED Provider Note History of Present Illness Chief Complaint: Back Injury/Pain Stated Complaint: WEAKNESS/NUMBNESS IN LEGS, UNBALANCED, BACK P/FALL Time Seen by Provider: 01/11/24 10:01 Source: patient and family Mode of arrival: wheelchair Limitations: no limitations Patient is a 58-year-old male who presents to the emergency department with complaints of back pain in his lower thoracic and lumbar spine. Patient states that over the last couple days his pain has gotten worse and as the pain is gotten worse he is also experiencing some weakness and numbness in his legs. Patient states that he feels that he is unable to ambulate due to the significant weakness in his legs. Patient also notes numbness and tingling throughout both lower extremities. Patient states that he did have 2 episodes of bowel incontinence but is unsure if it is related to his back or related to his history of Crohn's. Patient denies any injuries. Patient states that he was seen at Dr. Waggoner's office who referred him to the emergency department for further evaluation. Home Medications Medication Instructions Recorded Confirmed Type ALLOPURINOL (ZYLOPRIM) 300 mg PO DAILY ##0 04/21/17 01/11/24 History CHOLECALCIFEROL (VITAMIN D3) 4,000 unit PO DAILY ##0 04/21/17 01/11/24 History Fenofibrate (Tricor ) 145 mg PO DAILY ##0 04/21/17 01/11/24 History METFORMIN HCL ER (GLUCOPHAGE ER) 500 mg PO DAILY ##0 04/21/17 01/11/24 History Mesalamine (Pentasa) 1,000 mg PO BID ##0 04/21/17 01/11/24 History Pantoprazole (Protonix) 20 mg PO DAILY ##0 04/21/17 01/11/24 History Entyvio 1 dose IV .[id number] 01/11/24 01/11/24 History atorvastatin 40 mg tablet 40 mg PO DAILY 01/11/24 01/11/24 History icosapent ethyl 1 gram capsule 2 g PO BID 01/11/24 01/11/24 History insulin glargine U-300 conc 300 30 unit subcut QAM 01/11/24 01/11/24 History unit/mL (3 mL) subcutaneous pen (Toujeo Max U-300 SoloStar) methylprednisolone 4 mg tablets in 4 mg PO DIRECTED 01/11/24 01/11/24 History a dose pack semaglutide 2 mg/dose (8 mg/3 mL) 2 mg subcut UD 01/11/24 01/11/24 History subcutaneous pen injector (Ozempic) Allergies Allergy/AdvReac Type Severity Reaction Status Date / Time infliximab [From Remicade] AdvReac Severe per pt Unverified 01/12/24 10:55 they think it caused a blood clot Past Med/Surg History Problem List (Updated 01/12/24 @ 11:06 by Kailey Ayala RN) Myelopathy concurrent with and due to spinal stenosis of thoracic region Neurogenic claudication Diabetes mellitus Thoracic spinal stenosis Crohn disease (Chronic) Medical History Crohn disease Thoracic spinal stenosis Diabetes mellitus Surgical History H/O colonoscopy History of bowel resection Social History Smoking Status: Never smoker Hx Alcohol Use: No Hx Substance Use: No Preferred Language: Turkmen Substance Addiction Coordinator Required: No Beliefs That Will Affect Care: None Current Living Situation: Spouse Other Information That Helps Us Care for You: No Feels Safe at Home: Yes Safety Concerns: Feels Safe At This Time Physical Exam Vital Signs Vital Signs - 24 hr 01/11/24 12:14 Pulse Rate [Finger] 89 Respiratory Rate 16 Respiratory Effort / Characteristics Non-Labored Spontaneous Respiratory Depth Normal Blood Pressure [Right Arm] 139/91 Blood Pressure Mean [Right Arm] 107 Blood Pressure Position [Right Arm] Semi-fowlers Pulse Oximetry 98 Oxygen Delivery Method Room Air VITAL SIGNS - Vital signs and nursing notes were reviewed. GENERAL -58-year-old male appearing his stated age and in noticeable discomfort throughout the exam. NECK - FROM of the cervical spine. ABDOMEN - Abdominal contour without pulsations or visible masses. BS normoactive all four quadrants. MUSCULOSKELETAL - ROM of the lumbar spine region was limited due to patient's discomfort. No step-off deformities were palpated down the cervical, thoracic, or lumbar spines. Moderately increased tenderness to Palpation experienced at the level of the lower thoracic and lumbar spine. NEUROLOGIC - REFLEXES: +3/4 patellar reflexes B/L, +3/4 Achilles reflexes B/L. SENSORY: Patient has numbness that extends bilaterally from his hips down to his lower legs and into his toes. Patient notes that severity of the numbness comes in waves, however he is having difficulty discerning sharp versus dull. VASCULAR - Capillary refill of the great toe was brisk. No mottling or blanching of the extremities present. +3/5 dorsalis pedis pulses palpated bilaterally. Course Administered Medications Acetaminophen (Acetaminophen 500 Mg Tab) 1,000 mg PO Q8H PRN PRN Reason: MILD Pain Scale 1,2,3 & Pre PT Stop: 02/10/24 17:14 Last Admin: 01/11/24 22:18 Dose: 1,000 mg Documented By: NIDIA Insulin Aspart (Insulin Aspart Per Unit Charge) 0 units SC Q6 MICHELLE Stop: 02/11/24 05:59 Last Admin: 01/12/24 06:31 Dose: 2 units Documented By: NIDIA Co-signed By: DEVAUGHN Insulin Glargine (Lantus Per Unit Charge) 20 units SC DAILY MICHELLE Stop: 02/11/24 08:59 Last Admin: 01/12/24 10:01 Dose: 20 units Documented By: CRISTO Co-signed By: RENALDO Discontinued Medications Acetaminophen (Acetaminophen 500 Mg Tab) 1,000 mg PO NOW STA Stop: 01/11/24 10:34 Last Admin: 01/11/24 10:38 Dose: 1,000 mg Documented By: MARISOL Dexamethasone Sodium Phosphate (DexamethasonePf 10 Mg/Ml Vial) 10 mg IM NOW ONE Stop: 01/11/24 10:57 Last Admin: 01/11/24 12:01 Dose: 10 mg Documented By: MERCEDES Heparin Sodium (Porcine) (Heparin Sod 5,000 Unit/0.5 Ml Vial) 5,000 units SQ NOW STA Stop: 01/11/24 20:12 Last Admin: 01/11/24 22:17 Dose: 5,000 units Documented By: NIDIA Dexamethasone 8 mg/ Syringe 2 mls @ 1 mls/min IV Q8H MICHELLE Stop: 01/12/24 10:01 Last Admin: 01/12/24 09:56 Dose: 1 mls/min Documented By: Admin: 01/12/24 02:14 Dose: 1 mls/min Documented By: Admin: 01/11/24 18:44 Dose: 1 mls/min Documented By: CRISTO Insulin Aspart (Insulin Aspart Per Unit Charge) 0 units SC ACHS MICHELLE Stop: 02/10/24 17:59 Last Admin: 01/11/24 22:16 Dose: 8 units Documented By: NIDIA Co-signed By: DEVAUGHN Admin: 01/11/24 18:49 Dose: 12 units Documented By: CRISTO Co-signed By: SMITH Medical Decision Making Differential Diagnosis In the evaluation and treatment of this patient the following differential diagnoses were considered: Cauda equina syndrome, discitis, HNP, sciatica, epidural abscess, psoas abscess, musculoskeletal strain, lumbar fracture, lumbar dislocation, lumbar subluxation, spondylolisthesis, spondylosis, or compression fracture. Medical Records Attestation: I reviewed the patient's medical records. Home Medications was personally reviewed by me Laboratory Data Attestation: I reviewed the patient's lab results. 01/11/24 17:46 01/11/24 17:45 MDM Narrative Patient is a 58-year-old male who presents to the emergency department with complaints of back pain in his lower thoracic and lumbar spine. Patient states that over the last couple days his pain has gotten worse and as the pain is gotten worse he is also experiencing some weakness and numbness in his legs. Patient states that he feels that he is unable to ambulate due to the significant weakness in his legs. Patient also notes numbness and tingling throughout both lower extremities. Patient states that he did have 2 episodes of bowel incontinence but is unsure if it is related to his back or related to his history of Crohn's. Patient denies any injuries. Patient states that he was seen at Dr. Waggoner's office who referred him to the emergency department for further evaluation. Patient was evaluated by myself and findings were noted in the physical exam above. Patient was ordered an MRI of the thoracic and lumbar spines. Patient was offered medications for his discomfort but stated that he would just take some Tylenol at this time. Patient was ordered at 1000 mg of p.o. Tylenol as well as 10 mg of IM Decadron. Patient was informed that MRI let me know that the wait to have the MRI completed may be longer than normal. Patient verbalized understanding and was agreeable to wait for the MRI versus considering other imaging. I did reach out at this time to Dr. Waggoner to let him know that the patient was here in the emergency department and we were waiting on MRI testing as Dr. Waggoner referred the patient to the emergency department. Upon reevaluation the patient states that he was comfortable at this time, experiencing some moderate discomfort but declined any further pain medication at this time. Patient was eventually taken to MRI for his MRI testing. Patient's MRIs were interpreted by radiology and his thoracic MRI showed severe central canal stenosis at T4-T5 due to disc bulging and extensive ligamentous hypertrophy which is resulting in cord impingement and cord edema. Patient's lumbar spine MRI was interpreted by radiology to show moderate multilevel facet arthrosis and mild to moderate degenerative disc disease with no central canal stenosis. I reached back out to Dr. Waggoner to make him aware of these MRI findings and he verbalized understanding and stated that he had looked at the MRI results as well. Dr. Waggoner states that he is going to admit the patient and talk to him about operative intervention in the near future. I discussed these findings with the patient and made him aware that Dr. Waggoner would be admitting him to the hospital, the patient and his at bedside were both agreeable and verbalized understanding. Dr. Waggoner is admitting the patient under his service and will consult medicine as needed. Please refer to Dr. Waggoner and the hospitalist group's documentation for further management and evaluation of this patient. Impression Thoracic back pain, Bulging of thoracic intervertebral disc, Spinal cord compression due to degenerative disorder of spinal column Discharge Plan Visit Data Chief Complaint: Back Injury/Pain Stated Complaint: WEAKNESS/NUMBNESS IN LEGS, UNBALANCED, BACK P/FALL ED Provider: Boy Mendez ED Midlevel Provider: Medina Muse Discharge Problem: Thoracic back pain, Bulging of thoracic intervertebral disc, Spinal cord compression due to degenerative disorder of spinal column Patient Disposition: Admitted As Inpatient Discharge Instructions Interventions: ED Discharge Assessment Last Done: 01/11/24 16:26 Discharge Problem: Thoracic back pain Qualifiers: Chronicity: acute Back pain laterality: unspecified Qualified Code(s): M54.6 - Pain in thoracic spine
[2024-01-12] MEDS ORDERED: GLYCOPYRROLATE 0.2 MG/ML VIAL ONE (11:10)
--- NOTE | 2024-01-12 11:19 | History & Physical Bridge Note ---
Date of Service January 12, 2024 History & Physical Bridge Note I have examined the patient, reviewed the History & Physical and in the interval since the performance of the History & Physical I have noted the following changes of clinical significance: no changes noted emergent decompression fusion T4-T5
[2024-01-12] MEDS: LACTATED RINGER'S 1,000 ML IV SCH (11:31)
[2024-01-12] MEDS ORDERED: ePHEDrine sulfate 50 MG/ML AMP IV PRN (11:34)
[2024-01-12] MEDS ORDERED: ATROPINE SULFATE 0.1 MG/ML 10ML SYR IV PRN (11:34)
[2024-01-12] MEDS ORDERED: ONDANSETRON INJ 2 MG/ML 2 ML VIAL IV PRN ×2 (11:34→15:45)
[2024-01-12] MEDS ORDERED: PROMETHAZINE HCL 6.25 MG in SODIUM CHLORIDE 0.9% 50 ML IV PRN (11:34)
--- NOTE | 2024-01-12 11:34 | Anesthesiology Consultation ---
Date of Service January 12, 2024 Assessment & Plan Chart Review Chart Review: Acceptable Risk for Surgery and Patient NOT seen in Pre Admission Testing Consults Requested none ASA ASA2 Proposed Anesthesia Anesthesia Type: General Risk / Benefits Reviewed With: PT / POA / Parent / Guardian, Accepts Plan and Informed Consent Obtained History Surgery Operation Date: 01/12/24 11:45 Proposed Procedures p T4-T5 Decompression and Fusion, with Spinal Cord Monitoring - Jean Waggoner, Height/Weight Height: 5 ft 8 in Weight: 104.326 kg Allergies Allergy/AdvReac Type Severity Reaction Status Date / Time infliximab [From Remicade] AdvReac Severe per pt Verified 01/12/24 11:32 they think it caused a blood clot Medications Home Medications Medication Instructions Recorded Confirmed Last Taken ALLOPURINOL (ZYLOPRIM) 300 mg PO DAILY ##0 04/21/17 01/11/24 Unknown CHOLECALCIFEROL (VITAMIN D3) 4,000 unit PO DAILY ##0 04/21/17 01/11/24 Unknown Fenofibrate (Tricor ) 145 mg PO DAILY ##0 04/21/17 01/11/24 Unknown METFORMIN HCL ER (GLUCOPHAGE ER) 500 mg PO DAILY ##0 04/21/17 01/11/24 Unknown Mesalamine (Pentasa) 1,000 mg PO BID ##0 04/21/17 01/11/24 Unknown Pantoprazole (Protonix) 20 mg PO DAILY ##0 04/21/17 01/11/24 Unknown Entyvio 1 dose IV .[id number] 01/11/24 01/11/24 Unknown atorvastatin 40 mg tablet 40 mg PO DAILY 01/11/24 01/11/24 Unknown icosapent ethyl 1 gram capsule 2 g PO BID 01/11/24 01/11/24 Unknown insulin glargine U-300 conc 300 30 unit subcut QAM 01/11/24 01/11/24 Unknown unit/mL (3 mL) subcutaneous pen (Toujeo Max U-300 SoloStar) methylprednisolone 4 mg tablets in 4 mg PO DIRECTED 01/11/24 01/11/24 Unknown a dose pack semaglutide 2 mg/dose (8 mg/3 mL) 2 mg subcut UD 01/11/24 01/11/24 Unknown subcutaneous pen injector (Ozempic) Active Medications Generic Name Dose Route Start Last Admin Trade Name Freq PRN Reason Stop Dose Admin Acetaminophen 1,000 mg 01/11/24 17:15 01/11/24 22:18 Acetaminophen 500 Mg Tab PO 02/10/24 17:14 1,000 mg Q8H PRN Administration MILD Pain Scale 1,2,3 & Pre PT Lactated Ringer's 1,000 mls @ 15 mls/hr 01/12/24 11:30 01/12/24 11:31 Lr IV 01/13/24 11:29 0 mls/hr .Q24H MICHELLE Infusion Insulin Aspart 0 units 01/12/24 06:00 01/12/24 06:31 Insulin Aspart Per Unit Charge SC 02/11/24 05:59 2 units Q6 MICHELLE Administration Insulin Glargine 20 units 01/12/24 09:00 01/12/24 10:01 Lantus Per Unit Charge SC 02/11/24 08:59 20 units DAILY MICHELLE Administration NPO Date Last Intake of Fluids: 01/12/24 Time Last Intake of Fluids: 05:00 Last Intake of Fluids Comment: "ice chips " Date Last Intake of Solids: 01/11/24 Time Last Intake of Solids: 18:00 Past Medical History Medical History (Updated 01/12/24 @ 11:16 by Kailey Ayala RN) Perianal fistula due to Crohn's disease Fibula fracture spiral fracture- repaired- plates and screws- Nov 2023 H/O blood clots 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 Crohn disease Thoracic spinal stenosis Diabetes mellitus Exercise / Class Metabolic Activity II 4-5 Yardwork/Stairs/Walk up hill Past Surgical History Surgical History H/O colonoscopy History of bowel resection Past Anesthesia History No Hx of Anesthesia Complications and No Family Hx of Anesthesia Complications History of PONV No Hx of PONV and No Hx of Motion Sickness Social History Smoking Status: Never smoker Hx Alcohol Use: No Hx Substance Use: No Physical Exam Vital Signs Last Vital Signs Temp 36.9 C 01/12/24 11:08 Pulse 98 H 01/12/24 11:08 Resp 18 01/12/24 11:08 BP 128/80 01/12/24 11:08 Pulse Ox 94 01/12/24 11:08 O2 Del Method Room Air 01/12/24 11:08 ENMT Mouth: no dentition abnormality Thyromental Distance: > or= 3.5 Finger Breadths Mallampati Class: II Neck normal visual inspection Respiratory normal respiratory effort Auscultation: lungs clear to auscultation bilaterally Cardiovascular Rate/Rhythm: regular rate and regular rhythm Psychiatric Orientation: alert Testing Laboratory Results 01/11/24 17:46 01/11/24 17:45 Hemoglobin A1c 5.8 % (4.5-5.6) H 01/12/24 07:31 01/12/24 01/12/24 01/12/24 11:02 09:04 05:53 POC Glucose 175 H 161 H 162 H
[2024-01-12] MEDS: ceFAZolin 2000MG 2,000 MG/15 ML SYR IV SCH ×2 (11:40→20:11)
[2024-01-12] MEDS ORDERED: PHENYLEPHRINE 100MCG/ML 5ML SYR ONE (12:10)
[2024-01-12] MEDS ORDERED: diphenhydrAMINE 50 MG/ML VIAL ONE (12:37)
[2024-01-12] MEDS: BUPIVACAINE/EPINEPHRINE 0.25% 1:200,000 30 ML VIAL ONE (12:39)
[2024-01-12] MEDS: ceFAZolin 330 MG/ML 1 GM VIAL ONE (12:39)
[2024-01-12] MEDS ORDERED: KETAMINE HCL 10MG/ML SYR ONE (12:56)
[2024-01-12] MEDS ORDERED: SUGAMMADEX SODIUM 200 MG/2 ML VIAL IV ONE (13:12)
[2024-01-12] MEDS: FLOSEAL HEMOSTATIC MATRIX 10ML TOP ONE (13:23)
--- NOTE | 2024-01-12 13:25 | Operative Report ---
Post Operative Report Pre & Post Diagnosis Operation Date: 01/12/24 11:45 Pre-Op Diagnosis: Myelopathy Concurrent with and due to Spinal Stenosis of Thoracic Region Post-Op Diagnosis: Myelopathy Concurrent with and due to Spinal Stenosis of Thoracic Region I identified the patient and participated in the time-out.: Yes Procedure Operation Date: 01/12/24 11:45 Actual Procedures #1 decompression T4-T5 with bilateral medial facetectomies. #2 posterior spinal fusion T4-5 #3 placement infuse collagen sponge, with Koros in the posterior lateral gutters T4-T5. Surgeon Jean Waggoner, [employer] Officer Chandni Ruiz Estimated Blood Loss 100 Findings Consistent with Post-Op Diagnosis Specimens None Indications This is a 58-year-old male who presents with marked decline in neurologic status. He was diagnosed with a severe spinal stenosis T4-T5 with myelomalacia and is here for emergent decompression. Description of Procedure Patient was met with identified informed consent obtained. Patient was then taken to the operative suite underwent intubation placed in a prone position on the Anatoliy table chest padded and hip bolsters. All bony prominences well- padded eyes inspected to ensure no external precipice upon them. This point the upper thoracic spine was prepped and draped in a sterile fashion. With the assistance of fluoroscopy identified the T4-T5 level. Sharp dissection with assistance bradycardias then performed down to and exposing this region. Several eric retractors placed. Then formed a midline decompression complete laminectomy of L4 with bilateral medial facetectomies. Significant bony overgrowth was noted to the center of the canal eroding through the dura. It was removed in its entirety. The dural ectasia was covered with DuraGen patch and coated with DuraSeal. The transverse processes of T4-T5 were then burred to subcortical bleeding bone. Infuse collagen sponge, with Koros was placed in the posterior lateral gutters. 10 round QUIRINO drain inserted. Incision then closed with 1 Vicryl the fascia 2-0 Vicryl subcutaneously and 4 Monocryl for final skin closure. Steri-Strips sterile dressing placed. Patient waken taken to PACU in stable condition. Please note Chandni Ruiz was present at the entire procedure and all the patient positioning complex portion of the surgery and final skin closure. Spinal cord monitoring was utilized at the procedure no changes noted. I attest to the content of the Intraoperative Record and any orders documented therein. Any exceptions are noted below.
[2024-01-12] MEDS: fentaNYL citrate PF 100 MCG/2 ML VIAL IV PRN (14:05)
--- NOTE | 2024-01-12 14:21 | Anesthesiology Progress Note ---
Date of Service January 12, 2024 Anesthesia Post Procedure Vital Signs Vital Signs: Temp Pulse Resp BP BP Pulse Ox O2 Del Method 01/12/24 11:08 36.9 C 98 H 18 128/80 94 Room Air 01/12/24 07:15 36.6 C 99 H 18 128/78 93 Room Air 01/11/24 19:46 37 C 106 H 14 136/87 91 Room Air 01/11/24 16:50 36.8 C 89 18 147/93 H 95 Room Air 01/11/24 16:18 88 17 139/91 95 Room Air Pain Intensity Left Lower Back: Pain Intensity: 5 Transfer of Care Handoff Completed per policy Notes Mental Status: alert / awake / arousable Patient Amnestic to Procedure: Yes Nausea / Vomiting: adequately controlled Pain: adequately controlled Airway Patency, RR, SpO2: stable & adequate BP & HR: stable & adequate Hydration State: stable & adequate Anesthetic Complications: no major complications apparent
[2024-01-12] MEDS ORDERED: HYDROmorphone INJ 0.5 MG/0.5 ML SYR IV PRN (14:44)
[2024-01-12] MEDS: HYDROmorphone INJ 2 MG/ML SYR/VIAL ONE (14:48)
--- NOTE | 2024-01-12 14:48 | Pharmacy Report ---
Pharmacy Glycemic Short Note 2 - Date of Service January 12, 2024 - Glycemic Short BSG Results (Last 24 hours): 01/11/24 01/11/24 01/11/24 16:57 17:45 20:39 Glucose 181 H POC Glucose 189 H 222 H 01/12/24 01/12/24 01/12/24 05:53 09:04 11:02 Glucose POC Glucose 162 H 161 H 175 H 01/12/24 13:44 Glucose POC Glucose 159 H OUTPATIENT ANTIDIABETIC REGIMEN: * Toujeo u300 30 units SQ QAM * metformin 1000mg BIDM * Ozempic 2mg SQ QWK (has been off for 6 weeks per med rec) * HbA1c 5.8% (01/12/24) ASSESSMENT: * Vickey is a 58 YOM admitted status post thoracic decompression/fusion and a history of well controlled T2DM (based on recent A1c). Pharmacy has been consulted for glycemic management while inpatient. * Fasting BSG this AM acceptable, received 18 mg IV dexamethasone yesterday, home Lantus dose reduced 1/3 to cover steroids/basal needs while NPO before surgery. * Received 24 mg of IV dexamethasone preoperatively today, will cover postop with and additional 0.2-0.3 unit/kg. * Novolog initiated at a weight based stress of 3, carbohydrate ratio slightly tightened this AM. PLAN FOR INPATIENT GLYCEMIC CONTROL: * Hold outpatient oral diabetes medications * Basal insulin * Lantus 20 units SQ daily * Lantus 20-30 units SQ with dinner postoperatively * Bolus insulin * NovoLog per scale ACHS or Q6hrs while NPO * Goal Range: Low 110 mg/dL - High 140 mg/dL * Correction Factor: 15 mg/dL/unit * Nutritional / Prandial insulin per carb ratio of 1 unit per 4 grams CHO consumed
[2024-01-12] MEDS ORDERED: ACETAMINOPHEN 1,000 MG/100 ML VIAL IV PRN (15:45)
[2024-01-12] MEDS ORDERED: MAGNESIUM HYDROXIDE SUSP 30 ML UDC PO PRN (15:45)
[2024-01-12] MEDS ORDERED: hydrOXYzine HCl 25 MG TAB PO PRN (15:45)
[2024-01-12] MEDS ORDERED: NALOXONE HCL 0.4 MG/1 ML VIAL/CARP IV PRN (15:45)
[2024-01-12] MEDS ORDERED: bisacodyL 10 MG SUPP PR PRN (15:45)
[2024-01-12] MEDS ORDERED: ENTYVIO IV SCH (15:45)
[2024-01-12] MEDS ORDERED: ACETAMINOPHEN 500 MG TAB PO PRN (15:45)
[2024-01-12] MEDS ORDERED: ONDANSETRON 4 MG OD TAB PO PRN (15:45)
[2024-01-12] MEDS ORDERED: ALUMINUM/MAGNESIUM SUSP 30 ML UDC PO PRN (15:45)
[2024-01-12] MEDS ORDERED: DO NOT ADMINISTER PNEUMOCOCCAL VACCINE PRN (15:45)
[2024-01-12] MEDS ORDERED: LORazepam 2 MG/1 ML VIAL IV PRN (15:45)
[2024-01-12] MEDS ORDERED: NON-FORMULARY MEDICATION (Semaglutide [Ozempic] 2 mg/dose (8 mg/3 mL) pen injector) SQ SCH (15:45)
[2024-01-12] MEDS ORDERED: SOD PHOSPHATE/SOD BIPHOSPHATE ENEMA 132 ML BTL PR PRN (15:45)
[2024-01-12] MEDS ORDERED: FAMOTIDINE 20 MG TAB PO PRN (15:45)
[2024-01-12] MEDS ORDERED: DO NOT ADMINISTER FLU VACCINE PRN (15:45)
[2024-01-12] MEDS ORDERED: NON-FORMULARY MEDICATION (Methylprednisolone 4 mg tablets,dose pack) PO SCH (15:45)
[2024-01-12] MEDS ORDERED: LORazepam 0.5 MG TAB PO PRN (15:45)
[2024-01-12] MEDS ORDERED: PROMETHAZINE 12.5 MG/50.5 ML BAG IV PRN (15:45)
[2024-01-12] MEDS ORDERED: METOCLOPRAMIDE HCL INJ 5 MG/ML 2 ML VIAL IV PRN (15:45)
[2024-01-12] MEDS: allopurinoL 300 MG TAB PO SCH (16:12)
[2024-01-12] MEDS: CHOLECALCIFEROL 25 MCG (1000 UNITS) TAB PO SCH (16:12)
[2024-01-12] MEDS: ATORVASTATIN 40 MG TAB PO SCH (16:12)
[2024-01-12] MEDS: PANTOprazole 40 MG TAB PO SCH (16:13)
[2024-01-12] MEDS: FENOFIBRATE NANOCRYSTALLIZED 145 MG TABLET PO SCH (16:13)
[2024-01-12] MEDS: oxyCODONE HCL IR 5 MG TAB (IMMEDIATE RELEASE) PO PRN (16:48)
[2024-01-12] MEDS: HYDROmorphone INJ 0.5 MG/0.5 ML SYR IV PRN (17:58)
[2024-01-12] MEDS: dexAMETHasone 10 MG in SYRINGE 0 ML IV SCH (17:58)
[2024-01-12] MEDS: DOCUSATE SODIUM/SENNA 50/8.6MG TAB PO SCH (20:10)
[2024-01-12] MEDS: HYDROmorphone INJ 1 MG/ML SYRINGE IV PRN (20:11)
[2024-01-13] MEDS: POLYETHYLENE (MIRALAX) 17 GM PACK PO SCH (05:41)
[2024-01-13 07:44] LABS: Basophils # (auto) 0.02 K/uL (0.00-0.20); Basophils % (auto) 0.1 %; Hematocrit (blood only) 37.3 % (42.0-52.0); Hemoglobin 12.5 g/dl (14.0-18.0); Immature Granulocytes # (auto) 0.14 K/uL (0.01-0.20); Immature Granulocytes % (auto) 0.8 %; Lymphocytes # (auto) 1.45 K/uL (1.20-3.40); Mean Corpuscular Hemoglobin 30.3 pg (25.0-34.0); Mean Corpuscular Hgb Conc 33.5 g/dL (32.0-36.0); Mean Corpuscular Volume 90.5 fL (80.0-100.0); Mean Platelet Volume 10.3 fL (9.4-12.4); Monocytes # (auto) 0.97 K/uL (0.11-0.59); Monocytes % (auto) 5.3 %; Neutrophils # (auto) 15.64 K/uL (1.40-6.50); Neutrophils % (auto) 85.8 %; Platelet Count 313 K/uL (130-400); RDW Coefficient of Variation 13.4 % (11.5-14.5); RDW Standard Deviation 44.3 fL (36.4-46.3); Red Blood Count 4.12 M/uL (4.70-6.10); White Blood Count 18.22 K/ul (4.8-10.8)
[2024-01-13 07:54] LABS: BUN Creatinine Ratio 22.7 (10-20); Calcium 9.9 mg/dl (8.6-10.3); Creatinine Clr Calc Pharmacy 105.8 ml/min; Potassium 4.4 mmol/L (3.5-5.1)
--- NOTE | 2024-01-13 08:27 | Fluoroscopy Report ---
[place] thoracic spine 2V CLINICAL HISTORY: T5-T6 DECOMPRESSION COMPARISON STUDY: CT thoracic spine 01/11/2024 FLUOROSCOPY TIME: 35.7 seconds FLUOROSCOPY IMAGES: 1 EXPOSURE DOSE: 33.33 mGy FINDINGS: Retractors are present. A surgical sponge overlies the mid thoracic spine. Apparent endotra cheal tube. IMPRESSION: Fluoroscopic assistance as above. ACT 112: Negative or not required by law. Electronically signed by: Francisco Zamora M.D. 01/13/2024 8:26 AM
[2024-01-13] MEDS ORDERED: NON-FORMULARY MEDICATION (Insulin Glargine U-300 Conc [Toujeo Max U-300 Solostar] 300 unit SQ SCH (09:00)
[2024-01-13] MEDS ORDERED: metFORMIN HCL ER 500 MG TABCR PO SCH (09:00)
--- NOTE | 2024-01-13 11:30 | Pharmacy Report ---
Pharmacy Glycemic Short Note 2 - Date of Service January 13, 2024 - Glycemic Short BSG Results (Last 24 hours): 01/12/24 01/12/24 01/12/24 13:44 16:25 20:31 Glucose POC Glucose 159 H 147 H 156 H 01/13/24 01/13/24 07:18 07:29 Glucose 171 H POC Glucose 160 H OUTPATIENT ANTIDIABETIC REGIMEN: * Toujeo u300 30 units SQ QAM * metformin 1000mg BIDM * Ozempic 2mg SQ QWK (has been off for 6 weeks per med rec) * HbA1c 5.8% (01/12/24) ASSESSMENT: 01/12 * Vickey received 46 units of insulin yesterday (40 were basal) * Fasting BSG this AM acceptable, received dexamethasone 8mg IV Q8H x3 doses, last dose this AM. Additional 20 units of basal insulin given this AM to help cover. Will add a scale at bedtime up to a weight based stress of 2 as unclear if Lantus is covering basal needs or steroid reaction. * BSGs well controlled with steroid administration, continue current NovoLog parameters, consider loosening as steroid effects wear off. 01/11 * Vickey is a 58 YOM admitted status post thoracic decompression/fusion and a history of well controlled T2DM (based on recent A1c). Pharmacy has been consulted for glycemic management while inpatient. * Fasting BSG this AM acceptable, received 18 mg IV dexamethasone yesterday, home Lantus dose reduced 1/3 to cover steroids/basal needs while NPO before surgery. * Received 24 mg of IV dexamethasone preoperatively today, will cover postop with and additional 0.2-0.3 unit/kg. * Novolog initiated at a weight based stress of 3, carbohydrate ratio slightly tightened this AM. PLAN FOR INPATIENT GLYCEMIC CONTROL: * Hold outpatient oral diabetes medications * Basal insulin * Lantus 20 units SQ daily * Lantus 0-20 units SQ HS x1 based on BSG (see eMAR fro additional details) * Bolus insulin * NovoLog per scale ACHS or Q6hrs while NPO * Goal Range: Low 110 mg/dL - High 140 mg/dL * Correction Factor: 15 mg/dL/unit * Nutritional / Prandial insulin per carb ratio of 1 unit per 4 grams CHO consumed
[2024-01-13] MEDS: icosapent ethyL 1 GM CAP PO SCH (20:57)
[2024-01-13] MEDS: PENTASA PO SCH (20:58)
[2024-01-13] MEDS: HEPARIN SOD 5,000 UNIT/0.5 ML VIAL SQ SCH (21:03)
[2024-01-13] MEDS: LANTUS PER UNIT CHARGE SC SCH (22:17)
[2024-01-14] MEDS: diphenhydrAMINE Capsule 25 MG CAP PO PRN (02:33)
[2024-01-14] MEDS: LANTUS PER UNIT CHARGE SC SCH (08:20)
--- NOTE | 2024-01-14 09:20 | Orthopedic Progress Note ---
Date of Service January 14, 2024 Assessment & Plan (1) Myelopathy concurrent with and due to spinal stenosis of thoracic region: Plan: Today we will begin transfers to the chair he may ambulate about the room. Pending his tolerance for today's activities will initiate formalized occupational therapy and physical therapy Tuesday. Admission and Anticipated Discharge Date Admission Date: January 11, 2024 Subjective Patient's back pain is controlled. He feels his leg symptoms are improving. Denies any headache nausea or vomiting. Physical Exam Physical Exam: On exam is good strength testing. Is able to sit up without difficulty. The d ressing is intact without evidence of drainage. There is no evidence of swelling or erythema. Results & Data Vital Signs (Past 12 Hours) Vital Signs Temp Pulse Resp BP Pulse Ox O2 Del Method 01/14/24 07:53 36.5 C 66 18 119/73 96 Room Air
--- NOTE | 2024-01-14 11:15 | Hospitalist Progress Note ---
Date of Service January 14, 2024 Assessment & Plan (1) Thoracic spinal stenosis: Plan: Presented to the ED after being seen in Dr. Waggoner's office for Back pain, left lower extremity weakness Thoracic MRI: Severe central canal stenosis at T4-T5 due to disc bulge, facet arthrosis and extensive ligamentous hypertrophy. This results in cord impingement with cord edema. S/P T4-T5 Decompression and Fusion with Dr. Waggoner 01/13 - EBL 100, hgb 12.5 post operatively - significant bony overgrowth to the center of the canal eroding through the dura --> requiring dura patch/seal - QUIRINO drain has been removed - prolonged bed rest 2/2 dura tear - hopeful for PT/OT tomorrow Consider adrian removal 01/14 DVT Proph: Dr. Keenan Discussed with orthospine. Patient is at increased risk of VTE due to his history of Crohn's and also has a history of splenic infarct. Will give 1 dose of subcu heparin for DVT prophylaxis preop and then resume subcu heparin 24 hours after any surgical intervention and ultimately transition to Lovenox after 72 hours for DVT prophylaxis if doing well and stable Takes aspirin for primary prevention, last dose 01/09 (2) Crohn disease: Plan: Crohn's disease with hx of splenic infarct On Entyvio every 8 weeks. Due jan 29 Continue dexamethasone DVT prophylaxis as noted (3) Diabetes mellitus: Plan: Type 2 diabetes mellitus Home regimen: Ozempic held while inpatient (has not been taking in the last 6 weeks), metformin and glargine 30 units qAM Pharmacy glycemic consult in place (4) Neurogenic claudication: Plan Dispo: continued inpatient stay Thank you for allowing us to participate in the care of this patient, please reach out with any questions or concerns Admission and Anticipated Discharge Date Admission Date: January 11, 2024 Supervising Physician Co-Signing Physician Notes Attending Attestation - Chart reviewed, care plan d/w JAMIE New. I agree w/ the black components of her consult note. Bruno Cortez MD Subjective Patient seen sitting up in the chair - first time out of bed since surgery. Pain with twisting movements that he is not supposed to do, but otherwise realtively controlled at rest. Passing gas, no BM yet. Adrian in place - states dr. Waggoner in favor to leave it in until tomorrow recent ankle surgery - is full weightbearing with a brace for that. Was not on DVT proh for this surgery Review of Systems Review of Systems: All systems reviewed & are unremarkable except as noted in Subjective Physical Exam Physical Exam: General: NAD, VS as above, sitting up in the chair, plesant Resp: normal respiratory effort, lungs clear to auscultation CV: RRR, no murmur, Back: dressing c/d/i Abd: normal bowel sounds,soft, non tender Extremities: Moves all extremities, no LE edema. Right ankle brace in place. Neuro: A&O x3, : adrian in place draining light yellow urine Results & Data Results & Data Vital Signs (Past 12 Hours) Vital Signs Temp Pulse Resp BP Pulse Ox O2 Del Method 01/14/24 07:53 97.7 F 66 18 119/73 96 Room Air Laboratory Results CBC and chemisry reviewed PG Care Time/CCT Total # of Minutes Spent Total Time Spent with Patient: Total time spent is greater than 50% in coordination of care (as documented) at patient's floor/unit and/or counseling patient: Coding Level of Care Code 81950 SUB INP/OBS CARE 2/35MIN Diagnoses Thoracic spinal stenosis M48.04 Crohn disease K50.90 Diabetes mellitus E11.9 Neurogenic claudication R29.818
[2024-01-14] MEDS: dexAMETHasone 8 MG in SYRINGE 0 ML IV SCH (15:08)
--- NOTE | 2024-01-15 07:27 | Orthopedic Progress Note ---
Date of Service January 15, 2024 Assessment & Plan (1) Myelopathy concurrent with and due to spinal stenosis of thoracic region: Plan: Patient is stable postoperative day #4. I encouraged him to work with physical therapy and Occupational Therapy both orders were placed today. Our hopes that we can remove his catheter once he is ambulatory and start getting him moving. Will continue with pain control GI and DVT prophylaxis. Will see how he does later this week. Admission and Anticipated Discharge Date Admission Date: January 11, 2024 Subjective Patient was seen bedside in room 383 bed 1. He is awake. He is alert and oriented. He states he had some difficulties with a chair yesterday due to pain in between the shoulder blades. Once he got back in bed he is still pretty sore last night. This morning he feels much better. He is able to move his legs. He did stand to transfer and did not have any headaches. He denies any other numbness, tingling, or paresthesias. Physical Exam Physical Exam: On exam he is alert and oriented. He asked and answers questions appropriately. His abdomen soft nontender his calves are supple and nontender. He is able to lift his legs off the bed. He is nontender with logrolling of the hips. His dressing is clean dry and intact. Results & Data Vital Signs (Past 12 Hours) Vital Signs Temp Pulse Resp BP Pulse Ox O2 Del Method 01/14/24 20:24 36.7 C 92 H 18 132/83 92 Room Air
[2024-01-15] MEDS: traMADol HCL 50 MG TABLET PO PRN (10:02)
--- NOTE | 2024-01-15 14:42 | Pharmacy Report ---
Pharmacy Glycemic Short Note 2 - Date of Service January 15, 2024 - Glycemic Short BSG Results (Last 24 hours): 01/14/24 01/14/24 01/15/24 16:49 20:13 08:09 POC Glucose 226 H 173 H 253 H 01/15/24 11:56 POC Glucose 212 H OUTPATIENT ANTIDIABETIC REGIMEN: * Toujeo u300 30 units SQ QAM * metformin 1000mg BIDM * Ozempic 2mg SQ QWK (has been off for 6 weeks per med rec) * HbA1c 5.8% (01/12/24) ASSESSMENT: 01/14 * Patient received 60 units of insulin yesterday, lantus was titrated down to 16 units for fasting of 123 mg/dL on 01/13, however dexamethasone q8H was restarted @ 1400. Fasting this AM up to 253- will increase lantus with scale for PM * Continue current novolog parameters as patient previously at goal with these parameters- monitor 01/12 * Vickey received 46 units of insulin yesterday (40 were basal) * Fasting BSG this AM acceptable, received dexamethasone 8mg IV Q8H x3 doses, last dose this AM. Additional 20 units of basal insulin given this AM to help cover. Will add a scale at bedtime up to a weight based stress of 2 as unclear if Lantus is covering basal needs or steroid reaction. * BSGs well controlled with steroid administration, continue current NovoLog parameters, consider loosening as steroid effects wear off. 01/11 * Vickey is a 58 YOM admitted status post thoracic decompression/fusion and a history of well controlled T2DM (based on recent A1c). Pharmacy has been co nsulted for glycemic management while inpatient. * Fasting BSG this AM acceptable, received 18 mg IV dexamethasone yesterday, home Lantus dose reduced 1/3 to cover steroids/basal needs while NPO before surgery. * Received 24 mg of IV dexamethasone preoperatively today, will cover postop with and additional 0.2-0.3 unit/kg. * Novolog initiated at a weight based stress of 3, carbohydrate ratio slightly tightened this AM. PLAN FOR INPATIENT GLYCEMIC CONTROL: * Hold outpatient oral diabetes medications * Basal insulin * Lantus 16 units SQ daily * Lantus 15-20 units SQ HS x1 based on BSG (see eMAR fro additional details) * Bolus insulin * NovoLog per scale ACHS or Q6hrs while NPO * Goal Range: Low 110 mg/dL - High 140 mg/dL * Correction Factor: 15 mg/dL/unit * Nutritional / Prandial insulin per carb ratio of 1 unit per 4 grams CHO consumed
[2024-01-15] MEDS: LANTUS PER UNIT CHARGE SC SCH (17:11)
--- NOTE | 2024-01-15 17:44 | Hospitalist Progress Note ---
Date of Service January 15, 2024 Assessment & Plan (1) Myelopathy concurrent with and due to spinal stenosis of thoracic region: (2) Diabetes mellitus: (3) Thoracic spinal stenosis: Plan (1) Thoracic spinal stenosis: Plan: Presented to the ED after being seen in Dr. Waggoner's office for Back pain, left lower extremity weakness Thoracic MRI: Severe central canal stenosis at T4-T5 due to disc bulge, facet arthrosis and extensive ligamentous hypertrophy. This results in cord impingement with cord edema. S/P T4-T5 Decompression and Fusion with Dr. Waggoner 01/13 - EBL 100, hgb 12.5 post operatively - significant bony overgrowth to the center of the canal eroding through the dura --> requiring dura patch/seal - QUIRINO drain has been removed - prolonged bed rest 2/2 dura tear - hopeful for PT/OT tomorrow Marrero removal 01/14 DVT Proph: Dr. Keenan Discussed with orthospine. Patient is at increased risk of VTE due to his history of Crohn's and also has a history of splenic infarct. Will give 1 dose of subcu heparin for DVT prophylaxis preop and then resume subcu heparin 24 hours after any surgical intervention and ultimately transition to Lovenox after 72 hours for DVT prophylaxis if doing well and stable Takes aspirin for primary prevention, last dose 01/09 (2) Crohn disease: Plan: Crohn's disease with hx of splenic infarct On Entyvio every 8 weeks. Due jan 29 Continue dexamethasone DVT prophylaxis as noted - Continue judicial bowel regimen as patient has not had BM since surgery (3) Diabetes mellitus: Plan: Type 2 diabetes mellitus Home regimen: Ozempic held while inpatient (has not been taking in the last 6 weeks), metformin and glargine 30 units qAM Pharmacy glycemic consult in place Plan Dispo: continued inpatient stay Thank you for allowing us to participate in the care of this patient. At this time, the medicine team will sign off. Please feel free to reconsult as needed. Admission and Anticipated Discharge Date Admission Date: January 11, 2024 Supervising Physician Co-Signing Physician Notes Attending Attestation - Chart reviewed, care plan d/w JAMIE Nicole. I agree w/ the black components of his consult note. Bruno Cortez MD Subjective Attending: Dr. Cortez Patient on the orthopedic service with her Rosalnie. Internal medicine consult 1124 for perioperative management of critical thoracic spinal stenosis. Patient underwent operative correction with Dr. Waggoner on 03/12/2023 with compression of T4-T5 with bilateral medial facetectomies. Patient also had posterior spinal fusion to T4-5. Patient is currently postoperative day #4. Patient reports that he is doing better. He is slowly increasing his activity. Physical therapy and Occupational Therapy consults have been placed and patient was seen this morning by them. Patient's pain is generally controlled. Review of patient's labs reveal elevated WBC. It is most likely secondary to dexamethasone. No documented fever. No diarrhea. No nausea or vomiting. No other evidence of acute illness. Patient does have Crohn's disease. He is on Entyvio every 8 weeks. No bowel movement since admission. He is with bowel regimen at this time. Patient with no other acute complaints at this time. Review of Systems 2 Review of Systems: A total of 10 systems was reviewed and is negative other than as listed in the HPI Physical Exam 2 Physical Exam: GENERAL : No acute distress EYES: No icterus, gaze conjugate NOSE: No evidence of epistaxis MOUTH: No lesions or candidiasis NECK: Supple LUNGS: CTA B/L, no wheezes, rales or rhonchi HEART: Regular, rate controlled ABDOMEN: Soft, NT, ND, BS Present EXTREMITIES: No LE edema, pedal pulses intact. Patient does have a brace on his right foot and ankle. NEURO: A&OX3 Results & Data Results & Data Vital Signs (Past 12 Hours) Vital Signs Temp Pulse Resp BP Pulse Ox O2 Del Method 01/15/24 15:35 36.8 C 79 18 129/79 94 Room Air 01/15/24 07:48 36.8 C 87 18 134/81 94 Room Air Laboratory Results 01/13/24 07:18 01/13/24 07:18 Diagnostic Findings Thoracic Spine MRI 01/11/24 10:33 MRI OF THE THORACIC SPINE WITHOUT CONTRAST CLINICAL HISTORY: Falls. Back pain. Numbness. Bilateral lower extremity weakness. COMPARISON: None. TECHNIQUE: Utilizing a 1.5 Nicole magnet and dedicated coil, multiplanar, multiecho imaging of the thoracic spine was performed without IV contrast. FINDINGS: Alignment of the thoracic spine is anatomic. Vertebral body heights are maintained. No marrow edema or marrow replacement is present. There are no thoracic spine fractures. No intracanalicular mass or fluid collection is present. Moderate multilevel degenerative changes within the thoracic spine are present, including disc space narrowing and ossified ptosis with facet arthrosis. There is severe central canal stenosis at T4-T5 due to disc bulge with severe facet arthrosis in extensive ligamentous hypertrophy. Patent AP diameter of the canal is 2.9 mm. Associated increased T2 signal within the cord suggests cord edema. Otherwise, there is mild multilevel central canal stenosis probably due to facet arthrosis with ligamentous hypertrophy. Thoracic cord signal is otherwise normal. There is no intracanalicular mass or fluid collection. Paravertebral soft tissues are unremarkable. There is moderate multilevel neural foraminal stenosis. IMPRESSION: 1. Severe central canal stenosis at T4-T5 due to disc bulge, facet arthrosis and extensive ligamentous hypertrophy. This results in cord impingement with cord edema. 2. Otherwise, mild multilevel central canal stenosis. 3. Moderate multilevel neural foraminal stenosis. 4. No acute thoracic spine fractures. ACT 112: Negative or not required by law. Electronically signed by: Tony Langford M.D. 01/11/2024 2:40 PM L Lumbar Spine MRI 01/11/24 10:34 MRI OF THE LUMBAR SPINE WITHOUT CONTRAST CLINICAL HISTORY: back pain, numbness COMPARISON STUDY: Lumbar spine radiographs October 26, 2011. TECHNIQUE: Utilizing a 1.5 Nicole magnet and dedicated coil, multiplanar, multiecho imaging of the lumbar spine was performed without IV contrast. FINDINGS: For purposes of numbering on this exam, the L5-S1 disc space is assigned to axial image 27 of 30. Vertebral body heights are maintained. No lumbar spine fractures are identified. There is moderate marrow edema along the left aspect of the superior endplate of T12. Vertebral body heights are maintained. This is likely discogenic in etiology. There may be mild paravertebral edema. There is no intracanalicular mass or fluid collection. Conus terminates at the upper L1 level. Paravertebral soft tissues are unremarkable. Moderate multilevel degenerative changes within the lumbar spine are present. A 1.5 cm T1 and T2 hypointense focus within the left iliac bone is partially imaged. L1-2: The central canal is patent. There is moderate facet arthrosis. The neural foramen are patent. L2-3: There is moderate facet arthrosis with ligamentous hypertrophy. Central canal is patent. There is moderate bilateral neural foraminal stenosis. L3-4: Mild disc bulge is present. There is moderate facet arthrosis with ligamentous hypertrophy. Central canal is patent. There is moderate bilateral neural foraminal stenosis. L4-5: There is moderate facet arthrosis with ligamentous hypertrophy. There is disc bulge with superimposed small right paracentral disc protrusion. There is moderate narrowing of the right lateral recess and left neural foraminal severe right neural foraminal stenosis. L5-S1: Facet arthrosis is present. Central canal and neural foramen are patent. IMPRESSION: 1. No lumbar spine fractures. 2. No acute process within the lumbar spine by MRI. 3. Moderate multilevel facet arthrosis and mild to moderate multilevel degenerative disc disease. No central canal stenosis. Moderate to severe multilevel neural foraminal stenosis, as described above. ACT 112: Negative or not required by law. Electronically signed by: Tony Langford M.D. 01/11/2024 2:[address] 01/11/24 15:02 CT OF THE THORACIC SPINE CLINICAL HISTORY: spinal stenosis COMPARISON STUDY: Thoracic spine MRI performed earlier today. TECHNIQUE: Helical axial images of the thoracic spine were obtained. Sagittal and coronal reconstructions were viewed. Automated exposure control was utilized for the study. A dose lowering technique was utilized adhering to the principles of ALARA. FINDINGS: Alignment of the thoracic spine is anatomic. Vertebral body heights are maintained with the exception of slight loss of height of the superior endplate of T9 which is likely chronic. No acute thoracic spine fractures are present. There are no osseous lesions within the thoracic spine. There is moderate anterior osteophytosis of the thoracic spine. Multiple disc osteophyte complexes are present, including a disc ossify complexes at the T4-T5 level. This is largely composed of bone. In addition, there is moderate to severe multilevel facet arthrosis. There is associated ossific/calcific material within the posterior aspect of the canal. These findings account for severe central canal stenosis which were shown on MRI of January 11, 2024. These findings are most pronounced at the T4-T5 level. IMPRESSION: 1. No acute thoracic spine fracture or subluxation. 2. Moderate multilevel degenerative disc disease and moderate to severe facet arthrosis within the thoracic spine. Posterior osteophyte formation at several levels, most pronounced at the T4-T5 level. Facet arthrosis with ligamentous hypertrophy which is partially calcified/ossified. Therefore, severe central canal stenosis at T4-T5 on MRI performed earlier today is largely due to osteophyte/bone formation. ACT 112: Negative or not required by law. Electronically signed by: Tony Langford M.D. 01/11/2024 4:04 PM L Chest X-Ray 01/11/24 17:15 HISTORY: Preoperative evaluation. TECHNIQUE: PA and lateral chest radiographs. COMPARISON: Chest radiograph dated 02/25/2023 FINDINGS: No focal lung consolidation. No pneumothorax or pleural effusion. The normal heart size. Left-sided aortic arch. Midline trachea. Included upper abdomen is unremarkable. No acute osseous abnormality. IMPRESSION: No acute cardiopulmonary findings. Electronically signed by Jose Felix 01-11-2024 6:43 PM Thoracic Spine X-Ray 01/12/24 11:45 [place] thoracic spine 2V CLINICAL HISTORY: T5-T6 DECOMPRESSION COMPARISON STUDY: CT thoracic spine 01/11/2024 FLUOROSCOPY TIME: 35.7 seconds FLUOROSCOPY IMAGES: 1 EXPOSURE DOSE: 33.33 mGy FINDINGS: Retractors are present. A surgical sponge overlies the mid thoracic spine. Apparent endotracheal tube. IMPRESSION: Fluoroscopic assistance as above. ACT 112: Negative or not required by law. Electronically signed by: Francisco Zamora M.D. 01/13/2024 8:26 AM PG Care Time/CCT Total # of Minutes Spent Total Time Spent with Patient: Total time spent is greater than 50% in coordination of care (as documented) at patient's floor/unit and/or counseling patient:20 minutes Coding Level of Care Code 21994 SUB INP/OBS CARE 1/25MIN Diagnoses Myelopathy concurrent with and due to spinal stenosis of thoracic region M48.04; G99.2 Diabetes mellitus E11.9 Thoracic spinal stenosis M48.04 Time Spent (min) 20
[2024-01-16 07:57] LABS: Hematocrit (blood only) 38.9 % (42.0-52.0); Hemoglobin 13.2 g/dl (14.0-18.0); Mean Corpuscular Hemoglobin 30.1 pg (25.0-34.0); Mean Corpuscular Hgb Conc 33.9 g/dL (32.0-36.0); Mean Corpuscular Volume 88.6 fL (80.0-100.0); Mean Platelet Volume 10.5 fL (9.4-12.4); Platelet Count 318 K/uL (130-400); RDW Coefficient of Variation 12.8 % (11.5-14.5); RDW Standard Deviation 41.4 fL (36.4-46.3); Red Blood Count 4.39 M/uL (4.70-6.10); White Blood Count 17.04 K/ul (4.8-10.8)
[2024-01-16] MEDS: LANTUS PER UNIT CHARGE SC SCH ×2 (09:25→21:01)
--- NOTE | 2024-01-16 11:01 | Hospitalist Progress Note ---
Date of Service January 16, 2024 Assessment & Plan (1) Thoracic spinal stenosis: Plan: Presented to the ED after being seen in Dr. Waggoner's office for Back pain, left lower extremity weakness Thoracic MRI: Severe central canal stenosis at T4-T5 due to disc bulge, facet arthrosis and extensive ligamentous hypertrophy. This results in cord impingement with cord edema. s/p T4-T5 decompression and fusion with Dr. Waggoner 01/13. prolonged bed rest due to 2/2 dura tear CBC 01/15 w/ leukocytosis secondary to dexamethasone usage QUIRINO drain removed Marrero removed 01/14 PT/OT eval 01/14 - rec discharge safe for home w/ . DVT Proph: Dr. Keenan Discussed with orthospine. Patient is at increased risk of VTE due to his history of Crohn's and also has a history of splenic infarct. Will give 1 dose of subcu heparin for DVT prophylaxis preop and then resume subcu heparin 24 hours after any surgical intervention and ultimately transition to Lovenox after 72 hours for DVT prophylaxis if doing well and stable Takes aspirin for primary prevention, last dose 01/09 (2) Diabetes mellitus: Plan: Type 2 diabetes mellitus Home regimen: Ozempic held while inpatient (has not been taking in the last 6 weeks), metformin and glargine 30 units qAM Pharmacy glycemic consult in place (3) Crohn disease: Plan: Crohn's disease with hx of splenic infarct On Entyvio every 8 weeks. Due jan 29 Continue dexamethasone DVT prophylaxis as noted - Continue judicial bowel regimen as patient has not had BM since surgery -per chart review patient refusing several doses of Miralax and Senna. Plan Plan Dispo: continued inpatient stay Thank you for allowing us to participate in the care of this patient. At this time, the medicine team will sign off. Please feel free to reconsult as needed. Admission and Anticipated Discharge Date Admission Date: January 11, 2024 Subjective Patient seen and examined this morning. Patient was able to ambulate with PT yesterday and did well. Patient reports no BM since coming to hospital. He is on bowel regimen per primary team. He offered no other complaints today. Physical Exam Constitutional: WD/WN, vitals as above Eyes: PERRL, conjunctivae normal, anicteric sclerae Respiratory: breathing unlabored Cardiovascular: well perfused Psychiatric: A+Ox3, euthymic affect Results & Data Results & Data Vital Signs (Past 12 Hours) Vital Signs Temp Pulse Resp BP Pulse Ox O2 Del Method 01/16/24 07:15 36.8 C 79 17 138/86 94 Room Air PG Care Time/CCT Total # of Minutes Spent Total Time Spent with Patient: Total time spent is greater than 50% in coordination of care (as documented) at patient's floor/unit and/or counseling patient: Coding Level of Care Code 34524 SUB INP/OBS CARE 2/35MIN Diagnoses Thoracic spinal stenosis M48.04 Diabetes mellitus E11.9 Crohn disease K50.90
--- NOTE | 2024-01-16 11:19 | Orthopedic Progress Note ---
Date of Service January 16, 2024 Assessment & Plan (1) Myelopathy concurrent with and due to spinal stenosis of thoracic region: Plan: At this time continue physical therapy advance his bowel regiment anticipate discharge home tomorrow. Admission and Anticipated Discharge Date Admission Date: January 11, 2024 Subjective Patient's back pain is controlled. He is tolerating physical therapy. Physical Exam Physical Exam: Patient has good strength testing. Dressing is clean dry without evidence of drainage. Results & Data Vital Signs (Past 12 Hours) Vital Signs Temp Pulse Resp BP Pulse Ox O2 Del Method 01/16/24 07:15 36.8 C 79 17 138/86 94 Room Air
[2024-01-16] MEDS: bisacodyL 5 MG TABEC PO ONE (12:52)
[2024-01-16 19:43] VITALS: O2SAT 94
[2024-01-17 07:32] VITALS: PULSE 59; RESP 18; TEMP 97.7
[2024-01-17] MEDS: LANTUS PER UNIT CHARGE SC SCH (08:38)
--- NOTE | 2024-01-17 09:24 | Discharge Summary ---
Date of Service January 17, 2024 Admission HPI Per Admitting Provider This is a 58-year-old male who presents to our clinic yesterday. He has a marked decline in status over the past week with inability to ambulate without loss of balance. He notes progressive weakness to the lower extremities. As he presented grossly myelopathic he was sent to the emergency room for emergent imaging. Principal Diagnosis Thoracic spinal stenosis with myelopathy Discharge Data Allergies Allergy/AdvReac Type Severity Reaction Status Date / Time infliximab [From Remicade] AdvReac Severe per pt Verified 01/12/24 11:32 they think it caused a blood clot Consultations 01/11/24 15:44 ED Decision to Admit Stat 01/11/24 17:15 Consult Internal Medicine Routine Procedures Performed Operation Date: 01/12/24 11:45 Actual Procedures p T4-T5 Decompression and Fusion, with Spinal Cord Monitoring(Not Applicable) - Jean Waggoner DO Ordered Studies 01/11/24 10:33 MR thoracic spine wo con Stat 01/11/24 10:34 MR lumbar spine wo con Stat 01/11/24 15:02 CT thoracic spine wo con Stat 01/12/24 11:45 FL thoracic spine 2V Routine Hospital Course (1) Myelopathy concurrent with and due to spinal stenosis of thoracic region: Patient wants thoracic decompression fusion trial as well as taken orthopedic for postoperative postoperatively progressed appropriately. Improvement in his ambulation and function. Pain well-controlled. Subsidy discharged home. Disch arge orders instructions on the chart for further review. 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 You may walk to your tolerance. It is good exercise for your legs and back. Expect some back and intermittent leg aches and pains. 2. You may perform "counter-top" level activities (make a sandwich, cliff with a project, etc.). 3. No bending or lifting of more than 10 pounds or back twisting of any nature (roll like a log when turning in bed). 4. You may ride in a car for 20-30 minutes at a time. No driving until after your first visit with your doctor. 5. Frequent changes of position and restricting sitting to 30 minutes at a time will help limit the amount of back spasms and stiffness you may experience. 6. You may discontinue the use of ambulatory aids (cane, crutches, etc.) once your strength and confidence allow. 7. You may marketing communications specialist the shower and let water strike your incision when you arri ve home at least once daily. Do not take a tub bath, sit in a hot tub or go into a swimming pool until after your first recheck in the office. 8. You may resume previous diet. SPECIAL CARE INSTRUCTIONS: VERY IMPORTANT TO READ AND REVIEW A. Your surgical incision has been closed with a cosmetic suture under the skin that will dissolve in about 6 weeks. In 14 days, you can use a pair of clean scissors and cut the suture that is left outside of the skin at the ends of your incision. 1. The small skin tapes can be removed 7 days after surgery if they have not fallen off by that point. 2. You may keep the wound open to air as much as possible to promote healing after post-op day number 5 unless told otherwise by your doctor. 3. If you think the wound looks like it is becoming infected (redness or worsening drainage) and/or you are experiencing fever, chill or worsening back pain and muscle spasms, contact the office so that we may evaluate you as soon as possible. B. Complications are uncommon, but please contact us if you have any signs or symptoms of: 1. wound infection (fever higher than 102.5 degrees F, redness, separation of wound, drainage, or increasing pain from the incision) 2. blood clots in legs (pain, swelling, redness and warmth in legs) 3. urinary tract infection (fever higher than 102.5 degrees F, burning upon urination or increased frequency of urination) 4. nerve problems (inability to walk on your toes or heels, numbness, loss of bowel or bladder control) 5. any other symptoms that concern you C. Please call the office at if you have any concerns or questions about your operation or recovery. D. No smoking! Smoking drastically decreases the chance of a solid fusion. E. Do not take any anti-inflammatory medications (Indocin, Advil, Motrin, Aspirin, Naprosyn, etc.) as these may inhibit the chance of a solid fusion. Tylenol is okay to take for pain. MANAGING PAIN AFTER SPINAL SURGERY 1. Narcotic medication is intended for short-term use and will be provided for surgical pain. Surgical pain usually lasts for a period of 4-6 weeks. Narcotic medication includes Percocet, Vicodin, Darvocet, Tylenol #3 or Lortab. 2. Longer-term pain is more appropriately treated with non-narcotic medication such as Tylenol ES. 3. Muscle spasm is not appropriately treated with narcotics. Muscle relaxers such as Soma, Flexeril or Skelaxin can be used along with Tylenol ES. 4. Remember that we all live with some "aches and pains". This is not unusual or uncommon after an injury or as we get older. a. Back pain is expected and may include muscle spasms for 4 to 6 weeks after surgery. The pain should gradually improve. If the pain worsens for no apparent reason, please contact the office. b. Intermittent leg pain may also be experienced and should not be concerned about unless it worsens for no apparent reason. If so, please contact the office. 5. We will provide appropriate medication within the normal guidelines of their prescribed use. We will also be very cautious and aware of potential abuse and extended duration of patients' medication needs. a. Pain medications are for your comfort and to assist with sleep and rest so that the tissue can heal. They are not provided in order to return to normal activity and should not be used through the day. To do so or worsening pain at night can result from ongoing tissue damage and development of tolerance to the prescribed medicine. 6. Please allow 2-3 days to process refills. Prescriptions will not be mailed but must be picked up at the office. FOLLOW UP VISIT: Keep your scheduled follow-up appointment. Any questions, please call the office at . Pending Studies at Discharge: No Stand-Alone Forms: My [employer], Smoking Cessation Medications and DC Order Prescriptions: New tramadol 50 mg tablet 50 mg PO Q6H PRN (Reason: pain, moderate) Qty: 30 0RF oxycodone 5 mg tablet 5 mg PO Q6H PRN (Reason: pain) Qty: 30 0RF Continued ALLOPURINOL (ZYLOPRIM) 300 MG tablet 300 mg PO DAILY Qty: 0 CHOLECALCIFEROL (VITAMIN D3) 1,000 UNIT tablet 4,000 unit PO DAILY Qty: 0 Fenofibrate (Tricor ) 145 MG tablet 145 mg PO DAILY Qty: 0 METFORMIN HCL ER (GLUCOPHAGE ER) 500 MG tablet 500 mg PO DAILY Qty: 0 Mesalamine (Pentasa) 500 MG EXTENDED REL CAP 1,000 mg PO BID Qty: 0 Pantoprazole (Protonix) 20 MG tablet 20 mg PO DAILY Qty: 0 atorvastatin 40 mg tablet 40 mg PO DAILY icosapent ethyl 1 gram capsule 2 g PO BID insulin glargine U-300 conc [Toujeo Max U-300 SoloStar] 300 unit/mL (3 mL) insulin pen 30 unit subcut QAM Ozempic 2 mg/dose (8 mg/3 mL) pen injector 2 mg SUBCUT UD Rx Instructions: hasnt used for 6 weeks due to broken ankle Entyvio 1 dose IV .[id number] Discontinued methylprednisolone 4 mg tablets,dose pack 4 mg PO DIRECTED Discharge Orders: Discharge Order (Routine); Ordered 01/17/24 Ordered By: Jean Waggoner Admission Data Admit Date/Time: 01/11/24 15:11 Attending Provider: Jean Waggoner Admit Provider: Jean Waggoner Primary Care Provider: Rosy Pfeiffer Other Providers: Jean Waggoner; Johan Keenan
[2024-01-17 11:07] VITALS: BP 138/86
== END 2024-01-17 11:42 | disposition home or self-care (01) | DRG 451 ==
LOC: ED 09:53 → 3N 15:11
DX: E78.5 Hyperlipidemia, unspecified; Z88.8 Allergy status to other drugs, medicaments and biological substances; M51.24 Other intervertebral disc displacement, thoracic region; D72.829 Elevated white blood cell count, unspecified; K59.00 Constipation, unspecified; T38.0X5A Adverse effect of glucocorticoids and synthetic analogues, initial encounter; Z79.899 Other long term (current) drug therapy; K50.90 Crohn's disease, unspecified, without complications; Z79.4 Long term (current) use of insulin; M47.14 Other spondylosis with myelopathy, thoracic region; E11.9 Type 2 diabetes mellitus without complications; M89.38 Hypertrophy of bone, other site; Z87.891 Personal history of nicotine dependence; M48.04 Spinal stenosis, thoracic region; Z79.85 Long-term (current) use of injectable non-insulin antidiabetic drugs; Z86.79 Personal history of other diseases of the circulatory system